=== PATIENT | female | born 1945 | race African-American/Black ===

== ENCOUNTER 2017-01-23 13:01 | Outpatient (CLI) ==
[2014-09-19 18:20] VITALS: BMI 37.3
== END 2017-01-23 13:02 | disposition home or self-care (01) ==
LOC: LAB 13:01
PROVIDERS: ATTEND General Practice
DX: L02.91 Cutaneous abscess, unspecified (principal)
CPT/HCPCS: 87070; 87186

== ENCOUNTER 2017-01-31 12:27 | Outpatient (CLI) ==
[2014-09-19 18:20] VITALS: BMI 37.3
== END 2017-01-31 12:28 | disposition home or self-care (01) ==
LOC: LAB 12:27
PROVIDERS: ATTEND General Practice
DX: L02.91 Cutaneous abscess, unspecified (principal)
CPT/HCPCS: 87070

== ENCOUNTER 2018-08-12 12:38 | Outpatient (CLI) | payer OTHER ==
[2018-07-10 12:27] VITALS: BMI 34.9
== END 2018-08-12 12:39 | disposition home or self-care (01) ==
LOC: LAB 12:38
PROVIDERS: ATTEND Nurse Practitioner Adult Health
DX: Z01.818 Encounter for other preprocedural examination (principal); I70.1 Atherosclerosis of renal artery
CPT/HCPCS: 36415; 80048; 85027

== ENCOUNTER 2018-10-13 14:09 | Outpatient (CLI) ==
[2018-07-10 12:27] VITALS: BMI 34.9
== END 2018-10-13 14:10 | disposition home or self-care (01) ==
LOC: CAR 14:09
PROVIDERS: ATTEND Psychiatry & Neurology Sleep Medicine
DX: G47.33 Obstructive sleep apnea (adult) (pediatric) (principal)
CPT/HCPCS: 95810

== ENCOUNTER 2020-12-04 10:49 | Inpatient (IN) ==
[2020-12-04] MEDS ORDERED: TYLENOL PO PRN (12:39)
[2020-12-04] MEDS ORDERED: NITROSTAT SL PRN (12:39)
[2020-12-04] MEDS ORDERED: ATROPINE SULFATE PFS IVP PRN (12:39)
[2020-12-04 12:54] LABS: BASOPHILS # (AUTO) 0.1 K/uL (0-0.2); BASOPHILS % (AUTO) 0.9 % (0.0-3.0); EOSINOPHILS # (AUTO) 0.1 K/ul (0.0-0.7); EOSINOPHILS % (AUTO) 1.5 % (0.0-7.0); HEMATOCRIT 38.8 % (37.0-47.0); HEMOGLOBIN 12.9 g/dl (12.0-16.0); IMMATURE GRANULOCYTE % (AUTO) 0.1 % (0.0-5.0); LYMPHOCYTES # (AUTO) 1.6 K/uL (0.60-3.4); LYMPHOCYTES % (AUTO) 20.2 (10.0-50.0); MEAN CORPUSCULAR HEMOGLOBIN 28.5 pg (27.0-31.0); MEAN CORPUSCULAR HGB CONC 33.2 (31.8-35.4); MEAN CORPUSCULAR VOLUME 85.7 fl (81.0-99.0); MONOCYTES # (AUTO) 0.5 K/uL (0.4-2.0); MONOCYTES % (AUTO) 6.2 (0-10); NEUTROPHILS # (AUTO) 5.5 K/ul (2.0-6.9); NEUTROPHILS % (AUTO) 71.1 % (42.2-75.2); PLATELET COUNT 227 10^3/uL (140-440); RDW COEFFICIENT OF VARIATION 12.8 % (11.6-14.8); RED BLOOD COUNT 4.53 10^6/ul (4.20-5.40); WHITE BLOOD COUNT 7.76 K/ul (4.6-10.2)
[2020-12-04 13:05] LABS: ALANINE AMINOTRANSFERASE 14.5 U/L (0-35); ALBUMIN 4.03 g/dL (3.5-5.0); ALKALINE PHOSPHATASE 114.8 U/L (53-141); ASPARTATE AMINO TRANSFERASE 18.9 U/L (14-36); BILIRUBIN,TOTAL 0.63 mg/dL (0.2-1.3); BLOOD UREA NITROGEN 11.8 mg/dL (7-17); CALCIUM 9.13 mg/dL (8.4-10.2); CHLORIDE 101.4 mmol/L (98-107); CREATINE KINASE 91.8 U/L (30-135); CREATININE 0.73 mg/dL (0.60-1.30); POTASSIUM 4.32 mmol/L (3.5-5.1); SODIUM 139.1 mmol/L (134.5-145); TOTAL PROTEIN 7.28 g/dL (6.3-8.2)
[2020-12-04 13:07] VITALS: BMI 33.7
[2020-12-04] MEDS ORDERED: LASIX IVP STA (13:15)
[2020-12-04] MEDS ORDERED: XANAX PO PRN (13:16)
[2020-12-04 13:24] LABS: TROPONIN I < 0.012 ng/ml (0.0000-0.120)
--- NOTE | 2020-12-04 13:46 | DI ---
EXAM: Chest two view, frontal and lateral views. HISTORY: Shortness of breath. COMPARISON: 07/10/2018. FINDINGS: The heart size is mildly enlarged. There is no pulmonary vascular congestion. The lungs are clear. No pleural effusion or pneumothorax is seen. No acute osseous abnormality identified. S zuleima the prior study, there has been no significant interval change. IMPRESSION: No acute cardiopulmonary process.
[2020-12-04 14:06] LABS: BILIRUBIN,URINE Negative (NEGATIVE); CLARITY,URINE Clear (CLEAR); COLOR,URINE Yellow (YELLOW); GLUCOSE, URINE (UA) Trace (NEGATIVE); KETONES,URINE Negative (NEGATIVE); LEUKOCYTE ESTERASE ,URINE Negative (NEGATIVE); NITRITE,URINE Negative (NEGATIVE); PROTEIN,URINE 2+ (NEGATIVE); URINE, BLOOD 1+ (NEGATIVE); UROBILINOGEN,URINE 0.2 (0.2)
[2020-12-04 14:14] LABS: BACTERIA,URINE 2+ (NOT PRESENT); MUCUS,URINE 1+ (NOT PRESENT)
[2020-12-04 14:50] LABS: BORDETELLA PARAPERTUSSIS (PCR) NOT DETECTED (NOT DETECT); BORDETELLA PERTUSSIS (PCR) NOT DETECTED (NOT DETECT); CHLAMYDIA PNEUMONIAE (PCR) NOT DETECTED (NOT DETECT); CORONAVIRUS 229E (PCR) NOT DETECTED (NOT DETECT); CORONAVIRUS HKU1 (PCR) NOT DETECTED (NOT DETECT); CORONAVIRUS NL63 (PCR) NOT DETECTED (NOT DETECT); CORONAVIRUS OC43 (PCR) NOT DETECTED (NOT DETECT); HUMAN METAPNEUMOVIRUS (PCR) NOT DETECTED (NOT DETECT); HUMAN RHINOVIRUS/ENTEROV (PCR) NOT DETECTED (NOT DETECT); INFLUENZA B (PCR) NOT DETECTED (NOT DETECT); MYCOPLASMA PNEUMONIAE (PCR) NOT DETECTED (NOT DETECT); PARAINFLUENZA VIRUS 1 (PCR) NOT DETECTED (NOT DETECT); PARAINFLUENZA VIRUS 2 (PCR) NOT DETECTED (NOT DETECT); PARAINFLUENZA VIRUS 3 (PCR) NOT DETECTED (NOT DETECT); PARAINFLUENZA VIRUS 4 (PCR) NOT DETECTED (NOT DETECT); RESPIRATORY SYNCYTIAL V (PCR) NOT DETECTED (NOT DETECT); SARS_COV_2 (PCR) NOT DETECTED (NOT DETECT)
[2020-12-04] MEDS: SECTRAL PO SCH ×2 (15:18→20:25)
[2020-12-04 15:38] LABS: ADENOVIRUS (PCR) NOT DETECTED (NOT DETECT)
[2020-12-04] MEDS: TIMOPTIC 0.5% OPTH EACHEYE SCH (20:23)
[2020-12-04] MEDS: BRIMONIDINE TARTRATE 0.2% OPTH SOL EACHEYE SCH (20:23)
[2020-12-04] MEDS: MINOCYCLINE 50 MG PO SCH (20:24)
[2020-12-04] MEDS: LACOSAMIDE 100 MG PO SCH (20:24)
[2020-12-04] MEDS: MINOXIDIL PO SCH (20:25)
[2020-12-04] MEDS: CALAN SR PO SCH (20:25)
[2020-12-04] MEDS: CATAPRES PO SCH (20:25)
[2020-12-04] MEDS: LIPITOR PO SCH (20:26)
[2020-12-04] MEDS: COZAAR PO SCH (20:26)
[2020-12-04] MEDS: ASPIRIN CHEWABLE PO SCH (20:27)
[2020-12-04 20:59] LABS: CREATINE KINASE 94.8 U/L (30-135)
[2020-12-04] MEDS ORDERED: GLUCOTROL PO SCH (21:00)
[2020-12-04] MEDS ORDERED: EXT REL PELLETS PO SCH (21:00)
[2020-12-04] MEDS ORDERED: VERAPAMIL 240 MG PO SCH (21:00)
[2020-12-04 21:13] LABS: TROPONIN I < 0.012 ng/ml (0.0000-0.120)
[2020-12-05 05:26] LABS: BASOPHILS # (AUTO) 0.1 K/uL (0-0.2); BASOPHILS % (AUTO) 0.8 % (0.0-3.0); EOSINOPHILS # (AUTO) 0.2 K/ul (0.0-0.7); EOSINOPHILS % (AUTO) 2.5 % (0.0-7.0); HEMATOCRIT 34.4 % (37.0-47.0); HEMOGLOBIN 11.6 g/dl (12.0-16.0); IMMATURE GRANULOCYTE % (AUTO) 0.1 % (0.0-5.0); LYMPHOCYTES # (AUTO) 2.4 K/uL (0.60-3.4); MEAN CORPUSCULAR HEMOGLOBIN 28.6 pg (27.0-31.0); MEAN CORPUSCULAR HGB CONC 33.7 (31.8-35.4); MEAN CORPUSCULAR VOLUME 84.7 fl (81.0-99.0); MONOCYTES # (AUTO) 0.8 K/uL (0.4-2.0); MONOCYTES % (AUTO) 8.7 (0-10); NEUTROPHILS # (AUTO) 5.2 K/ul (2.0-6.9); NEUTROPHILS % (AUTO) 59.9 % (42.2-75.2); PLATELET COUNT 206 10^3/uL (140-440); RDW COEFFICIENT OF VARIATION 12.7 % (11.6-14.8); RED BLOOD COUNT 4.06 10^6/ul (4.20-5.40)
[2020-12-05] MEDS: SYNTHROID PO SCH ×2 (05:38→05:39)
[2020-12-05 05:39] LABS: ALANINE AMINOTRANSFERASE 11.9 U/L (0-35); ALBUMIN 3.4 g/dL (3.5-5.0); ALKALINE PHOSPHATASE 87.5 U/L (53-141); ASPARTATE AMINO TRANSFERASE 16.9 U/L (14-36); BILIRUBIN,TOTAL 0.63 mg/dL (0.2-1.3); CALCIUM 8.74 mg/dL (8.4-10.2); CARBON DIOXIDE 31.1 mmol/L (22-30.0); CREATININE 0.78 mg/dL (0.60-1.30); GLUCOSE 214.9 mg/dL (74-106); POTASSIUM 3.63 mmol/L (3.5-5.1); SODIUM 137.8 mmol/L (134.5-145); TOTAL PROTEIN 6.19 g/dL (6.3-8.2)
[2020-12-05] MEDS ORDERED: LASIX IVP ONE (08:18)
[2020-12-05] MEDS ORDERED: K-DUR PO SCH (08:30)
[2020-12-05] MEDS: GLUCOTROL PO SCH ×2 (08:43→17:25)
[2020-12-05] MEDS: K-DUR PO SCH ×2 (08:44→17:25)
[2020-12-05] MEDS: SECTRAL PO SCH ×3 (08:44→20:35)
[2020-12-05] MEDS: CATAPRES PO SCH ×2 (08:44→20:35)
[2020-12-05] MEDS: COZAAR PO SCH ×2 (08:44→20:35)
[2020-12-05] MEDS: TIMOPTIC 0.5% OPTH EACHEYE SCH ×2 (08:45→20:36)
[2020-12-05] MEDS: BRIMONIDINE TARTRATE 0.2% OPTH SOL EACHEYE SCH ×2 (08:45→20:36)
[2020-12-05] MEDS: MAG-OX PO SCH (08:45)
[2020-12-05] MEDS: MINOXIDIL PO SCH ×2 (08:45→20:35)
[2020-12-05] MEDS: HUMULIN 70-30 SUBCUT SCH (08:46)
[2020-12-05] MEDS: LACOSAMIDE 100 MG PO SCH ×2 (08:46→20:37)
[2020-12-05] MEDS ORDERED: [UNRECOGNIZED DRUG - OTHER] SUBCUT SCH (09:00)
[2020-12-05] MEDS ORDERED: NON-FORMULARY MEDICATION (Levothyroxine [Synthroid] 125 MCG tablet) PO SCH (09:00)
--- NOTE | 2020-12-05 09:26 | PCM.PROG ---
Attending Provider: ATTENDING PROVIDER: Dr. SWAPNA SUAZO This patient is seen with Isabel Cortés, Nurse Practitioner. DATE OF SERVICE: 12/05/20 SUBJECTIVE: This 75 year old AA/BLACK F was hospitalized 12/04/20. The patient is resting comfortably in bed. She had over 1 liter out yesterday. Leg edema improved. She slept well. Denies shortness of breath this a.m. REVIEW OF SYSTEMS: CONSTITUTIONAL: No night sweats. No fatigue, malaise, lethargy. No fever or chills. HEENT: Eyes: No visual changes. No eye pain. No eye discharge. ENT: No runny nose. No epistaxis. No sinus pain. No odynophagia. No congestion. RESPIRATORY: No cough, no congestion. No hemoptysis. Denies shortness of breath this morning. CARDIOVASCULAR: No angina symptoms. No CHF symptoms. No atypical chest pain for CAD. No palpitations. No orthopnea. GASTROINTESTINAL: No abdominal pain. No nausea or vomiting. No diarrhea or constipation. No hematemesis. No hematochezia. GENITOURINARY: No urgency. No frequency. No dysuria. No hematuria. No obstructive symptoms. No discharge. No pain. No significant abnormal bleeding. MUSCULOSKELETAL: No musculoskeletal pain; no joint swelling. NEUROLOGICAL: Awake, alert, oriented to time, place and person. No headache. No neck pain. No syncope. No seizures. No dizziness. PSYCHIATRIC: Not anxious. No depression. No suicidal thoughts. No homicidal thoughts. SKIN: No rash. No lesions. No wounds. ENDOCRINE: No unexplained weight loss. No weight gain. HEMATOLOGIC/LYMPHATIC: No anemia. No purpura. No petechiae. No prolonged or excessive bleeding. No palpable lymph nodes. PHYSICAL EXAMINATION: GENERAL: The patient is awake, alert and oriented, lying/sitting in bed in no distress. VITAL SIGNS: Temperature 97.2 F, Pulse 64, Respiratory Rate 18, BP 145/66, Pulse Ox 99% HEENT: Head normocephalic, atraumatic. Eyes: Extraocular muscles are intact. Pupils are equal, round and reactive to light and accommodation. Ears: No lesions. Nose appeared normal. Throat: No exudate or erythema. NECK: Supple. No JVD, no carotid bruit. No lymphadenopathy or thyromegaly. LUNGS: Diminished breath sounds. Clear to auscultation. Percussion note normal. Chest symmetrical. HEART: S1, S2, no S3. No murmurs. No cyanosis or clubbing. No ascites. Pulses: Dorsalis pedis and posterior tibial pulses +1 to +2 both sides. ABDOMEN: Soft. Non-tender. Bowel sounds active. No CVA tenderness. No mass felt. EXTREMITIES: +1 left lower extremity edema, trace right. Full range of motion of all extremities, equal. NEUROLOGIC: No focal deficit. Cranial nerves II through XII are grossly intact. No headache. No double vision. SKIN: Not dry. Intact. Turgor-normal. LYMPHATIC: No palpable lymph nodes/no lymphedema. MUSCULOSKELETAL: Normal joints with no swelling. Muscle tone is normal. LAB REVIEW: 12/05/20 04:55 12/05/20 04:55 12/05/20 04:55: Sodium 137.8, Potassium 3.63, Chloride 102.0, Carbon Dioxide 31.1 H, Anion Gap 8.33, BUN 17.0, Creatinine 0.78, Estimated GFR (MDRD) 87.00, BUN/Creatinine Ratio 21.79, Glucose 214.9 H D, Calcium 8.74, Total Bilirubin 0.63, AST 16.9, ALT 11.9, Alkaline Phosphatase 87.5 D, Total Protein 6.19 L, Albumin 3.40 L, Globulin 2.79, Albumin/Globulin Ratio 1.21 12/05/20 04:55: WBC 8.70, RBC 4.06 L, Hgb 11.6 L, Hct 34.4 L, MCV 84.7, MCH 28.6, MCHC 33.7, RDW Coeff of Keyla 12.7, Plt Count 206, Immature Gran % (Auto) 0.1, Neut % (Auto) 59.9, Lymph % (Auto) 28.0, [place] % (Auto) 8.7, Eos % (Auto) 2.5, Baso % (Auto) 0.8, Neut # (Auto) 5.2, Lymph # (Auto) 2.4, [place] # (Auto) 0.8, Eos # (Auto) 0.2, Baso # (Auto) 0.1, Immature Gran # (Auto) 0.0 12/04/20 20:46: Total Creatine Kinase 94.8, Troponin I < 0.012 12/04/20 14:45: Adenovirus (PCR) Not detected, B. pertussis DNA (PCR) Not detected, B.parapertussis DNA PCR Not detected, C. pneumoniae DNA (PCR) Not detected, Coronavirus OC43 (PCR) Not detected, Coronavirus HKU1 (PCR) Not detected, Coronavirus 229E (PCR) Not detected, Coronavirus NL63 (PCR) Not detected, Human Metapneumovir PCR Not detected, Influenza Type A (PCR) Not detected, Influenza B (RT-PCR) Not detected, M. pneumoniae (PCR) Not detected, Parainfluenza 1 (PCR) Not detected, Parainfluenza 2 (PCR) Not detected, Parainfluenza 3 (PCR) Not detected, Parainfluenza 4 (PCR) Not detected, RSV (PCR) Not detected, Entero/Rhino (PCR) Not detected, SARS-CoV-2 (PCR) Not detected 12/04/20 13:39: Urine Color Yellow, Urine Clarity Clear, Urine pH 5.0, Ur Specific [place] 1.020, Urine Protein 2+ H, Urine Glucose (UA) Trace H, Urine Ketones Negative, Urine Blood 1+ H, Urine Nitrite Negative, Urine Bilirubin Negative, Urine Urobilinogen 0.2, Ur Leukocyte Esterase Negative, Urine Microscopic RBC 5-10, Urine Microscopic WBC 2-5, Ur Squamous Epith Cells 5-10, Urine Bacteria 2+, Hyaline Casts 2-5, Urine Mucus 1+ 12/04/20 12:50: NT-Pro-B Natriuret Pep 70.500 12/04/20 12:50: Sodium 139.1, Potassium 4.32, Chloride 101.4, Carbon Dioxide 30.0, Anion Gap 12.02, BUN 11.8, Creatinine 0.73, Estimated GFR (MDRD) 94.00, BUN/Creatinine Ratio 16.16, Glucose 303.0 H, Calcium 9.13, Total Bilirubin 0.63, AST 18.9, ALT 14.5, Alkaline Phosphatase 114.8, Total Creatine Kinase 91.8, Troponin I < 0.012, Total Protein 7.28, Albumin 4.03, Globulin 3.25, Albumin/Globulin Ratio 1.24 12/04/20 12:50: WBC 7.76, RBC 4.53, Hgb 12.9, Hct 38.8, MCV 85.7, MCH 28.5, MCHC 33.2, RDW Coeff of Keyla 12.8, Plt Count 227, Immature Gran % (Auto) 0.1, Neut % (Auto) 71.1, Lymph % (Auto) 20.2, [place] % (Auto) 6.2, Eos % (Auto) 1.5, Baso % (Auto) 0.9, Neut # (Auto) 5.5, Lymph # (Auto) 1.6, [place] # (Auto) 0.5, Eos # (Auto) 0.1, Baso # (Auto) 0.1, Immature Gran # (Auto) 0.0 ASSESSMENT: Please see below. 1. Leg edema, bilateral. 2. Shortness of breath. 3. Uncontrolled diabetes mellitus type 2. PLAN: 1. Keep legs elevated. 2. Sliding scale with Accu-checks t.i.d. 3. Lasix 40 mg IV today. 4. Potassium 20 mEq p.o. b.i.d. Plan and coordination of the patient's care discussed in the presence of Member Of Parliament and nurse. CONDITION: Stable SCRIBED BY: HEATHER JOSHI Lace Inspector scribed while in presence of service performed by Dr. Suazo/Isabel Cortés APRN on 12/05/20 ([id number])
[2020-12-05] MEDS: HUMULIN R SUBCUT PRN (11:25)
--- NOTE | 2020-12-05 12:02 | HP ---
DATE OF SERVICE: 12/04/20 HISTORY OF PRESENT ILLNESS: This 75-year-old white female who was a direct admit for Dr. Mckinney. She was undergoing an echo. She had been complaining of shortness of breath, orthopnea, leg edema. She stated this had been worsening the past four to five weeks. She was subsequently admitted for shortness of breath and leg edema. PAST MEDICAL HISTORY: Right renal cyst - the patient refuses to follow with Dr. Negrete or any other urologist. Hypertension Leg edema Peripheral arterial disease, Dr. Moura PVChue Hypothyroidism History of viral encephalitis with seizures, still sees Dr. Potter and is on seizure medication, has not had a seizure since encephalitis. Glaucoma Diabetes mellitus Type 2 uncontrolled, last A1C was 10.2 on 08/10 Metabolic syndrome Obesity Diabetic neuropathy Noncompliance with medications, diet, lifestyle PAST SURGICAL HISTORY: Benign right breast cyst with biopsy, Dr. Osborne Carpal tunnel surgery Cataract extraction Partial hysterectomy Right knee scope REVIEW OF SYSTEMS: CONSTITUTIONAL: No night sweats. No fatigue, malaise, lethargy. No fever or chills. HEENT: Eyes: No visual changes. No eye pain. No eye discharge. ENT: No runny nose. No epistaxis. No sinus pain. No sore throat. No odynophagia. No ear pain. No congestion. RESPIRATORY: No cough, no congestion. No hemoptysis. Shortness of breath. CARDIOVASCULAR: No angina symptoms. No CHF symptoms. No atypical chest pain for CAD. No palpitations. No PND. No orthopnea. GASTROINTESTINAL: No abdominal pain. No nausea or vomiting. No diarrhea or constipation. No hematemesis. No hematochezia. GENITOURINARY: No urgency. No frequency. No dysuria. No hematuria. No obstructive symptoms. No discharge. No pain. No significant abnormal bleeding. MUSCULOSKELETAL: Positive for leg edema. No musculoskeletal pain. No joint swelling. No arthritis. NEUROLOGICAL: No headache. No neck pain. No syncope. No seizures. No dizziness. PSYCHIATRIC: Not anxious. No depression. No suicidal thoughts. No homicidal thoughts. SKIN: No rash. No lesions. No wounds. ENDOCRINE: No unexplained weight loss. No weight gain. HEMATOLOGIC/LYMPHATIC: No anemia. No purpura. No petechiae. No prolonged or excessive bleeding. No palpable lymph nodes. SOCIAL HISTORY: Nonsmoker. . Retired. MEDICATIONS: Lasix 40 mg one tab p.o. daily Aspirin 81 mg one tab p.o. bedtime Verapamil 240 mg p.o. bedtime Vimpat 100 mg p.o. b.i.d. Brimonidine one drop both eyes b.i.d. Synthroid 125 mcg p.o. daily Lipitor 40 mg p.o. bedtime Xanax 0.5-1 mg p.o. bedtime p.r.n. Timolol Maleate two drops both eyes b.i.d. Minocycline 50 mg p.o. bedtime Glipizide 10 mg p.o. b.i.d. Potassium Chloride (Klor-Con M20) 20 mEq p.o. daily Minoxidil 2.5 mg p.o. b.i.d. Losartan 50 mg p.o. b.i.d. Clonidine 0.1 mg p.o. b.i.d. Acebutolol 200 mg p.o. t.i.d. Insulin NPH and Regular 45 unit subcut q.a.m. ALLERGIES: ROSIGLITAZONE MALEATE (FROM [employer]), PIOGLITAZONE HCI (FROM Risk Ident), IODINATED CONTRAST MEDIA - IV DYE, LISINOPRIL, IODINE, CLARITHROMYCIN (FROM BIAXIN), METFORMIN, SHELLFISH, DERIVED PHYSICAL EXAMINATION: VITAL SIGNS: Temperature 98.9, pulse 67, BP 158/68, respiratory rate 24, 02 sat 97% on room air. Height 5'4", weight 196 lbs. HEENT: Head normocephalic, atraumatic. Eyes: Extraocular muscles are intact. Pupils are equal, round and reactive to light and accommodation. Ears: No lesions. Nose appeared normal. Throat: No exudate or erythema. NECK: Supple. No JVD, no carotid bruit. No lymphadenopathy or thyromegaly. LUNGS: Diminished breath sounds. Clear to auscultation. Percussion note normal. Chest symmetrical. HEART: S1, S2, no S3. No murmur. No cyanosis or clubbing. No ascites. Pulses: Dorsalis pedis and posterior tibial pulses +1 to +2 bilaterally. ABDOMEN: Soft. Nontender. Bowel sounds active. No CVA tenderness. No mass felt. EXTREMITIES: +2 bilateral leg edema. Full range of motion of all extremities, equal. NEUROLOGIC: No focal deficit. Cranial nerves II through XII are grossly intact. No headache, no double vision or headache. SKIN: Not dry. Intact. Turgor - normal. LYMPHATIC: No palpable lymph nodes/no lymphedema. MUSCULOSKELETAL: Normal joints with no swelling. Muscle tone is normal. LABS: White count 7.76, hemoglobin 12.9, hematocrit 38.8. Urine 2+ protein, 1+ blood, 1+ mucus, 2+ bacteria. Chest x-ray shows no acute cardiopulmonary process. Sodium 139, potassium 4.3, BUN 11, creatinine 0.73, AST 18, ALT 14, BNP 70.5. ASSESSMENT: 1. Shortness of breath 2. Leg edema 3. Orthopnea 4. Diabetes mellitus type 2, uncontrolled 5. Obesity 6. Hypothyroidism 7. History of seizure disorder 8. Hypertension PLAN: 1. We will admit. 2. Routine telemetry orders. 3. CBC, CMP now and daily. 4. Chest x-ray. 5. UA. 6. Continue all home medications. 7. IV Lasix 40 mg times one. 8. Elevate the legs. 9. Pro-BNP. 10. Sliding scale for insulin coverage. 11. Regular diet. 12. Will follow closely. TIME SPENT: More than 70 minutes. MTDD
[2020-12-05] MEDS: ASPIRIN CHEWABLE PO SCH (20:35)
[2020-12-05] MEDS: LIPITOR PO SCH (20:35)
[2020-12-05] MEDS: CALAN SR PO SCH (20:35)
[2020-12-05] MEDS: MINOCYCLINE 50 MG PO SCH (20:37)
[2020-12-06 05:49] LABS: BASOPHILS # (AUTO) 0.1 K/uL (0-0.2); EOSINOPHILS # (AUTO) 0.2 K/ul (0.0-0.7); EOSINOPHILS % (AUTO) 2.5 % (0.0-7.0); HEMATOCRIT 34.8 % (37.0-47.0); HEMOGLOBIN 11.6 g/dl (12.0-16.0); IMMATURE GRANULOCYTE % (AUTO) 0.2 % (0.0-5.0); LYMPHOCYTES # (AUTO) 2.2 K/uL (0.60-3.4); MEAN CORPUSCULAR HEMOGLOBIN 28.6 pg (27.0-31.0); MEAN CORPUSCULAR HGB CONC 33.3 (31.8-35.4); MEAN CORPUSCULAR VOLUME 85.9 fl (81.0-99.0); MONOCYTES # (AUTO) 0.8 K/uL (0.4-2.0); NEUTROPHILS # (AUTO) 5.2 K/ul (2.0-6.9); NEUTROPHILS % (AUTO) 61.3 % (42.2-75.2); PLATELET COUNT 206 10^3/uL (140-440); RDW COEFFICIENT OF VARIATION 12.7 % (11.6-14.8); RED BLOOD COUNT 4.05 10^6/ul (4.20-5.40); WHITE BLOOD COUNT 8.42 K/ul (4.6-10.2)
[2020-12-06 06:05] LABS: ALANINE AMINOTRANSFERASE 13.1 U/L (0-35); ALBUMIN 3.42 g/dL (3.5-5.0); ALKALINE PHOSPHATASE 89.3 U/L (53-141); ASPARTATE AMINO TRANSFERASE 18.6 U/L (14-36); BILIRUBIN,TOTAL 0.43 mg/dL (0.2-1.3); CALCIUM 8.75 mg/dL (8.4-10.2); CARBON DIOXIDE 30.7 mmol/L (22-30.0); CHLORIDE 101.7 mmol/L (98-107); CREATININE 0.78 mg/dL (0.60-1.30); GLUCOSE 268.6 mg/dL (74-106); POTASSIUM 4.42 mmol/L (3.5-5.1); SODIUM 137.1 mmol/L (134.5-145); TOTAL PROTEIN 6.2 g/dL (6.3-8.2)
[2020-12-06] MEDS: LASIX TAB PO SCH (06:07)
[2020-12-06] MEDS: SYNTHROID PO SCH ×2 (06:07)
[2020-12-06] MEDS: HUMULIN R SUBCUT PRN ×4 (06:28→20:54)
[2020-12-06] MEDS: BRIMONIDINE TARTRATE 0.2% OPTH SOL EACHEYE SCH ×2 (08:04→20:47)
[2020-12-06] MEDS: TIMOPTIC 0.5% OPTH EACHEYE SCH ×2 (08:04→20:47)
[2020-12-06] MEDS: K-DUR PO SCH ×2 (08:05→16:41)
[2020-12-06] MEDS: MINOXIDIL PO SCH ×2 (08:05→20:46)
[2020-12-06] MEDS: GLUCOTROL PO SCH ×2 (08:05→16:41)
[2020-12-06] MEDS: SECTRAL PO SCH ×3 (08:05→20:45)
[2020-12-06] MEDS: MAG-OX PO SCH (08:05)
[2020-12-06] MEDS: COZAAR PO SCH ×2 (08:05→20:45)
[2020-12-06] MEDS: HUMULIN 70-30 SUBCUT SCH (08:06)
[2020-12-06] MEDS: CATAPRES PO SCH ×2 (08:06→20:45)
[2020-12-06] MEDS: LACOSAMIDE 100 MG PO SCH ×2 (08:06→20:46)
--- NOTE | 2020-12-06 10:50 | ECHO2D ---
Date of Exam: 12/04/2020 Ordering Physician: DR. SWAPNA SUAZO Room #: OP Reason for Echo: SOB, PVC, CHEST PAIN M-Mode Normal Adult Results LV Dimensions Normal Adult Results AoV Opening excursions >1.6 >1.6 LVEDD-base- 3.5-5.8 5.4 Ao root dimensions 2.0-3.7 2.9 LVESD-base- 3.1-4.6 L. Atrium dimensions 1.9-3.8 3.9 Post. Wall thickness 0.8-1.1 1.1 IV septum (thickness) 0.7-1.2 1.3 Post. Wall excursion 0.72-1.3 NORMAL Septal motion NORMAL Systolic motion R. Ventricular cavity 1.5-2.0 NORMAL LVEF 60% 59% Paradoxical septal wall motion NORMAL 2-D : 2-D M Mode Echocardiogram was performed using apical four chamber and left parasternal long and short axis views. Mitral, tricuspid and aortic valves appear to be normal. Contractility of the left ventricle seems to be normal, so is the cavity size. Left atrial cavity size and aortic root appear to be normal. There is no pericardial effusion. There is no thrombus noted in the left ventricle or left atrial cavity. M-MODE: MV: CALCIFIC MITRAL VALVE ANNULUS AV: NORMAL TV: NORMAL PV: CHAMBER SIZE: NORMAL WALL MOTION: NORMAL PERICARDIUM: NORMAL INTERPRETATION: 1. BORDERLINE LEFT VENTRICLE HYPERTROPHY 2. CALCIFIC MITRAL VALVE ANNULUS 3. NORMAL LEFT VENTRICULAR CONTRACTILITY 4. NORMAL LEFT VENTRICLE SIZE MTDD
[2020-12-06] MEDS: ASPIRIN CHEWABLE PO SCH (20:44)
[2020-12-06] MEDS: CALAN SR PO SCH (20:45)
[2020-12-06] MEDS: LIPITOR PO SCH (20:45)
[2020-12-06] MEDS: MINOCYCLINE 50 MG PO SCH (20:46)
[2020-12-07 05:24] LABS: BASOPHILS # (AUTO) 0.1 K/uL (0-0.2); BASOPHILS % (AUTO) 0.9 % (0.0-3.0); EOSINOPHILS # (AUTO) 0.2 K/ul (0.0-0.7); EOSINOPHILS % (AUTO) 2.6 % (0.0-7.0); HEMATOCRIT 33.9 % (37.0-47.0); HEMOGLOBIN 11.1 g/dl (12.0-16.0); IMMATURE GRANULOCYTE % (AUTO) 0.2 % (0.0-5.0); LYMPHOCYTES # (AUTO) 2.4 K/uL (0.60-3.4); LYMPHOCYTES % (AUTO) 28.6 (10.0-50.0); MEAN CORPUSCULAR HEMOGLOBIN 28.1 pg (27.0-31.0); MEAN CORPUSCULAR HGB CONC 32.7 (31.8-35.4); MEAN CORPUSCULAR VOLUME 85.8 fl (81.0-99.0); MONOCYTES # (AUTO) 0.8 K/uL (0.4-2.0); MONOCYTES % (AUTO) 9.4 (0-10); NEUTROPHILS # (AUTO) 4.8 K/ul (2.0-6.9); NEUTROPHILS % (AUTO) 58.3 % (42.2-75.2); PLATELET COUNT 202 10^3/uL (140-440); RDW COEFFICIENT OF VARIATION 12.6 % (11.6-14.8); RED BLOOD COUNT 3.95 10^6/ul (4.20-5.40); WHITE BLOOD COUNT 8.23 K/ul (4.6-10.2)
[2020-12-07 05:34] LABS: ALANINE AMINOTRANSFERASE 11.2 U/L (0-35); ALBUMIN 3.08 g/dL (3.5-5.0); ALKALINE PHOSPHATASE 80.7 U/L (53-141); ASPARTATE AMINO TRANSFERASE 16.3 U/L (14-36); BILIRUBIN,TOTAL 0.41 mg/dL (0.2-1.3); BLOOD UREA NITROGEN 18.4 mg/dL (7-17); CALCIUM 8.54 mg/dL (8.4-10.2); CHLORIDE 103.7 mmol/L (98-107); CREATININE 0.81 mg/dL (0.60-1.30); GLUCOSE 136.6 mg/dL (74-106); POTASSIUM 4.24 mmol/L (3.5-5.1); SODIUM 137.5 mmol/L (134.5-145); TOTAL PROTEIN 5.68 g/dL (6.3-8.2)
[2020-12-07] MEDS: SYNTHROID PO SCH ×2 (06:04→06:05)
[2020-12-07] MEDS: LASIX TAB PO SCH (06:05)
[2020-12-07] MEDS: COZAAR PO SCH (09:09)
[2020-12-07] MEDS: K-DUR PO SCH (09:09)
[2020-12-07] MEDS: GLUCOTROL PO SCH (09:09)
[2020-12-07] MEDS: SECTRAL PO SCH ×2 (09:10→14:02)
[2020-12-07] MEDS: MINOXIDIL PO SCH (09:10)
[2020-12-07] MEDS: MAG-OX PO SCH (09:10)
[2020-12-07] MEDS: LACOSAMIDE 100 MG PO SCH (09:10)
[2020-12-07] MEDS: CATAPRES PO SCH (09:10)
[2020-12-07] MEDS: BRIMONIDINE TARTRATE 0.2% OPTH SOL EACHEYE SCH (09:11)
[2020-12-07] MEDS: TIMOPTIC 0.5% OPTH EACHEYE SCH (09:11)
--- NOTE | 2020-12-07 09:11 | PCM.PROG ---
Attending Provider: ATTENDING PROVIDER: Dr. SWAPNA SUAZO This patient is seen with Isabel Cortés, Nurse Practitioner. DATE OF SERVICE: 12/07/20 SUBJECTIVE: This 75 year old AA/BLACK F was hospitalized 12/04/20. Resting comfortably in bed. Leg edema has improved. Will go home on oral Lasix. Instructed to keep the legs elevated. REVIEW OF SYSTEMS: CONSTITUTIONAL: No night sweats. No fatigue, malaise, lethargy. No fever or chills. HEENT: Eyes: No visual changes. No eye pain. No eye discharge. ENT: No runny nose. No epistaxis. No sinus pain. No odynophagia. No congestion. RESPIRATORY: No cough, no congestion. No hemoptysis. No shortness of breath. CARDIOVASCULAR: No angina symptoms. No CHF symptoms. No atypical chest pain for CAD. No palpitations. No orthopnea.. GASTROINTESTINAL: No abdominal pain. No nausea or vomiting. No diarrhea or constipation. No hematemesis. No hematochezia. GENITOURINARY: No urgency. No frequency. No dysuria. No hematuria. No obstructive symptoms. No discharge. No pain. No significant abnormal bleeding. MUSCULOSKELETAL: No musculoskeletal pain; no joint swelling. NEUROLOGICAL: Awake, alert, oriented to time, place and person. No headache. No neck pain. No syncope. No seizures. No dizziness. PSYCHIATRIC: Not anxious. No depression. No suicidal thoughts. No homicidal thoughts. SKIN: No rash. No lesions. No wounds. ENDOCRINE: No unexplained weight loss. No weight gain. HEMATOLOGIC/LYMPHATIC: No anemia. No purpura. No petechiae. No prolonged or excessive bleeding. No palpable lymph nodes. PHYSICAL EXAMINATION: GENERAL: The patient is awake, alert and oriented, lying/sitting in bed in no distress. VITAL SIGNS: Temperature 98.2 F, Pulse 68, Respiratory Rate 16, BP 110/55, Pulse Ox 98% HEENT: Head normocephalic, atraumatic. Eyes: Extraocular muscles are intact. Pupils are equal, round and reactive to light and accommodation. Ears: No lesions. Nose appeared normal. Throat: No exudate or erythema. NECK: Supple. No JVD, no carotid bruit. No lymphadenopathy or thyromegaly. LUNGS: Diminished breath sounds. Clear to auscultation. Percussion note normal. Chest symmetrical. HEART: S1, S2, no S3. No murmurs. No cyanosis or clubbing. No ascites. Pulses: Dorsalis pedis and posterior tibial pulses +1 to +2 both sides. ABDOMEN: Soft. Non-tender. Bowel sounds active. No CVA tenderness. No mass felt. EXTREMITIES: No edema. Full range of motion of all extremities, equal. NEUROLOGIC: No focal deficit. Cranial nerves II through XII are grossly intact. No headache. No double vision. SKIN: Not dry. Intact. Turgor-normal. LYMPHATIC: No palpable lymph nodes/no lymphedema. MUSCULOSKELETAL: Normal joints with no swelling. Muscle tone is normal. LAB REVIEW: 12/07/20 04:39 12/07/20 04:39 12/07/20 04:39: Sodium 137.5, Potassium 4.24, Chloride 103.7, Carbon Dioxide 30. 0, Anion Gap 8.04, BUN 18.4 H, Creatinine 0.81, Estimated GFR (MDRD) 83.00, BUN/Creatinine Ratio 22.71, Glucose 136.6 H D, Calcium 8.54, Total Bilirubin 0.41, AST 16.3, ALT 11.2, Alkaline Phosphatase 80.7, Total Protein 5.68 L, Albumin 3.08 L, Globulin 2.60, Albumin/Globulin Ratio 1.18 12/07/20 04:39: WBC 8.23, RBC 3.95 L, Hgb 11.1 L, Hct 33.9 L, MCV 85.8, MCH 28.1, MCHC 32.7, RDW Coeff of Kyela 12.6, Plt Count 202, Immature Gran % (Auto) 0.2, Neut % (Auto) 58.3, Lymph % (Auto) 28.6, [place] % (Auto) 9.4, Eos % (Auto) 2.6, Baso % (Auto) 0.9, Neut # (Auto) 4.8, Lymph # (Auto) 2.4, [place] # (Auto) 0.8, Eos # (Auto) 0.2, Baso # (Auto) 0.1, Immature Gran # (Auto) 0.0 ASSESSMENT: Please see below. 1. Leg edema resolved. 2. Diabetes mellitus Type 2, uncontrolled. 3. Obesity. 4. Shortness of breath with exertion. 5. Noncompliance. PLAN: 1. Discharge home. 2. Elevate legs. 3. Continue Lasix. 4. The patient has Dobutamine Stress Echo Sestamibi scheduled for next week. Plan and coordination of the patient's care discussed in the presence of Home Health Care Social Worker and nurse. CONDITION: Stable SCRIBED BY: HEATHER JOSHI Resident Services Supervisor scribed while in presence of service performed by Dr. Suazo/Isabel Cortés APRN on 12/07/20 ([id number])
[2020-12-07] MEDS: HUMULIN 70-30 SUBCUT SCH (09:13)
[2020-12-07] MEDS: HUMULIN R SUBCUT PRN (11:12)
--- NOTE | 2020-12-07 14:06 | CM.DICTOOL ---
ADMISSION: 12/04/20 12:05 DISCHARGE: DECEMBER 07, 2020 DATE OF SERVICE: 12/07/20 FINAL DIAGNOSIS BILATERAL LEG EDEMA, RESOLVED SHORTNESS OF AIR DIABETES TYPE 2, UNCONTROLLED (A1C 10.2 2020) HYPERTENSION DYSLIPIDEMIA HYPOTHYROIDISM VIRAL ENCEPHALITIS WITH SEIZURE DISORDER (DR. NELSON) METABOLIC SYNDROME OBESITY RIGHT RENAL CYST NON-COMPLIANCE WITH DIET, LIFESTYLE, MEDICATIONS BILATERAL CATARACT EXTRACTION BILATERAL CARPAL TUNNEL SURGERY BENIGN RIGHT BREAST CYST WITH BIOPSY, DR. FAN PARTIAL HYSTERECTOMY RIGHT KNEE SCOPE ECHOCARDIOGRAM, COMPLETED 12/04/2020 LAST VITALS Temp Pulse Resp BP Pulse Ox 98.2 F 68 19 110/55 L 98 12/07/20 05:43 12/07/20 05:43 12/07/20 08:00 12/07/20 05:43 12/07/20 05:43 TAKE THESE MEDICATIONS AT HOME Acebutolol HCl (Acebutolol Hcl 200 Mg Capsule) 200 mg PO TID [facility] Last Admin: 12/07/20 09:10 Dose: 200 mg Documented by: Alprazolam (Alprazolam 0.5 Mg Tablet) 0.5 - 1 mg PO BEDTIME PRN PRN Reason: Restlessness Last Admin: 12/06/20 20:45 Dose: 0.5 mg Documented by: Aspirin (Aspirin 81 Mg Tab.Chew) 81 mg PO BEDTIME [facility] Last Admin: 12/06/20 20:44 Dose: 81 mg Documented by: Atorvastatin Calcium (Atorvastatin Calcium 20 Mg Tablet) 40 mg PO BEDTIME [facility] Last Admin: 12/06/20 20:45 Dose: 40 mg Documented by: Brimonidine Tartrate (Brimonidine Tartrate 0.2% 5 Ml Btl) 1 drop EACHEYE BID [facility] Last Admin: 12/07/20 09:11 Dose: 1 drop Documented by: Clonidine (Clonidine Hcl 0.1 Mg Tablet) 0.1 mg PO BID [facility] Last Admin: 12/07/20 09:10 Dose: 0.1 mg Documented by: Furosemide (Furosemide 40 Mg Tablet) 40 mg PO QDAC [facility] Last Admin: 12/07/20 06:05 Dose: 40 mg Documented by: Glipizide (Glipizide 5 Mg Tablet) 10 mg PO BIDWM [facility] Last Admin: 12/07/20 09:09 Dose: 10 mg Documented by: Insulin Human Isoph/Insulin Regular (Insulin Nph Hum/Reg Insulin Hm 100 Unit/Ml (3 Ml) Vial) 45 unit SUBCUT QAM [facility] Last Admin: 12/07/20 09:13 Dose: 45 unit Documented by: Levothyroxine Sodium (Levothyroxine Sodium 125 Mcg Tablet) 100 mcg PO QDAC [facility] Last Admin: 12/07/20 06:05 Dose: 125 mcg Documented by: Losartan Potassium (Losartan Potassium 25 Mg Tablet) 50 mg PO BID [facility] Last Admin: 12/07/20 09:09 Dose: 50 mg Documented by: Magnesium Oxide (Magnesium Oxide 400 Mg Tablet) 400 mg PO DAILY [facility] Last Admin: 12/07/20 09:10 Dose: 400 mg Documented by: Minoxidil (Minoxidil 2.5 Mg Tablet) 2.5 mg PO BID [facility] Last Admin: 12/07/20 09:10 Dose: 2.5 mg Documented by: Non-Formulary Medication (Lacosamide [Vimpat]) 100 mg PO BID [facility] Last Admin: 12/07/20 09:10 Dose: 100 mg Documented by: Non-Formulary Medication (Minocycline) 50 mg PO BEDTIME [facility] Last Admin: 12/06/20 20:46 Dose: 50 mg Documented by: Potassium Chloride (Potassium Chloride 20 Meq Tab) 20 meq PO DAILY WM [facility] Last Admin: 12/07/20 09:09 Dose: 20 meq Documented by: Timolol Maleate (Timolol Maleate 5 Ml Opth Radha) 2 drop EACHEYE BID [facility] Last Admin: 12/07/20 09:11 Dose: 2 drop Documented by: Verapamil HCl (Verapamil Hcl 120 Mg Tablet.Er) 240 mg PO BEDTIME [facility] Last Admin: 12/06/20 20:45 Dose: 240 mg Documented by: ALLERGIES clarithromycin [From Biaxin] Adverse Reaction (Verified 12/07/20 07:24) Iodinated Contrast Media [Iodinated Contrast Media - IV Dye] Adverse Reaction (Verified 12/07/20 07:24) iodine Adverse Reaction (Verified 12/07/20 07:24) lisinopril Adverse Reaction (Verified 12/07/20 07:24) metformin Adverse Reaction (Verified 12/07/20 07:24) pioglitazone HCl [From Actos] Adverse Reaction (Verified 12/07/20 07:24) rosiglitazone maleate [From Avandia] Adverse Reaction (Verified 12/07/20 07:24) shellfish derived Adverse Reaction (Verified 12/07/20 07:24) DISCONTINUED MEDICATIONS NONE NEW PRESCRIPTIONS: NONE SMOKING: NOT APPLICABLE DISEASE SPECIFIC EDUCATION: ELEVATE LEGS ABOVE THE LEVEL OF THE HIPS APPOINTMENT FOR OUTPATIENT DOBUTAMINE STRESS ECHO SESTAMIBI APPOINTMENT FOR HOSPITAL FOLLOW-UP LAB REVIEW: 12/07/20 04:39 12/07/20 04:39 12/07/20 04:39: Sodium 137.5, Potassium 4.24, Chloride 103.7, Carbon Dioxide 30.0, Anion Gap 8.04, BUN 18.4 H, Creatinine 0.81, Estimated GFR (MDRD) 83.00, BUN/Creatinine Ratio 22.71, Glucose 136.6 H D, Calcium 8.54, Total Bilirubin 0.41, AST 16.3, ALT 11.2, Alkaline Phosphatase 80.7, Total Protein 5.68 L, Albumin 3.08 L, Globulin 2.60, Albumin/Globulin Ratio 1.18 12/07/20 04:39: WBC 8.23, RBC 3.95 L, Hgb 11.1 L, Hct 33.9 L, MCV 85.8, MCH 28.1, MCHC 32.7, RDW Coeff of Keyla 12.6, Plt Count 202, Immature Gran % (Auto) 0.2, Neut % (Auto) 58.3, Lymph % (Auto) 28.6, [place] % (Auto) 9.4, Eos % (Auto) 2.6, Baso % (Auto) 0.9, Neut # (Auto) 4.8, Lymph # (Auto) 2.4, [place] # (Auto) 0.8, Eos # (Auto) 0.2, Baso # (Auto) 0.1, Immature Gran # (Auto) 0.0 PLAN: DISCHARGE HOME DIET: CONSISTENT CARBOHYDRATE ACTIVITY: GRADUALLY RESUME TOLERATED ELEVATE LEGS ABOVE THE LEVEL OF THE HIPS WHEN SLEEPING AND WHEN SITTING IN THE CHAIR AMBULATE IN THE HOME SEVERAL TIMES DAILY; USE CANE OR ROLLATOR FOR ADDED STABI LITY CHECK YOUR BLOOD SUGAR AT LEAST 2 TIMES DAILY YOU ARE SCHEDULED FOR AN OUTPATIENT DOBUTAMINE STRESS ECHO SESTAMIBI TEST ON DECEMBER 12 AT 9:00 AM YOU ARE SCHEDULED FOR AN APPOINTMENT WITH DR. SUAZO/SHADI DIAZ APRN/MARSHA GAN APRN ON November AT 1:45 PM CODE STATUS: FULL CODE MS. HUMPHRIES IS ALERT AND ORIENTED X 4. SHE IS AGREEABLE TO PLANS FOR DISCHARGE HOME. SHE IS AWARE AND AGREEABLE FOR OUTPATIENT TESTING ON DECEMBER 12. MS. HUMPHRIES LIVES AT HOME WITH HER DAUGHTER AND TWO GRANDDAUGHTERS. MS. HUMPHRIES IS INDEPENDENT WITH ADL'S. SHE TRANSFERS PER SELF AND IS AMBULATORY IN THE ROOM WITH USE A CANE AND/OR ROLLATOR (WHEN HIPS/LEGS FEEL STIFF). MS. HUMPHRIES IS CONTINENT OF BOWEL AND BLADDER, BUT WEARS DEPENDS UNDERGARMENTS DUE TO URINARY DRIBBLING. MS. HUMPHRIES HAS A GOOD APPETITE AND HAS CONSUMED 50-100% OF HER MEALS. HYDRATION STATUS IS GOOD. SKIN IS INTACT. EDEMA TO THE LOWER E XTREMITIES HAS RESOLVED. MS HUMPHRIES HAS A CANE, ROLLATOR AND GLUCOMETER FOR HER USE AT HOME. SHE REPORTS SHE STILL DRIVES. MD SHADI VARELA, [place]
[2020-12-07 14:13] VITALS: BP 117/66; TEMP 98.8
--- NOTE | 2020-12-08 13:28 | PN ---
DATE OF SERVICE: 12/06/2020 SUBJECTIVE: 75 year old white female hospitalized with shortness of breath and questionable orthopnea and leg edema up to the thighs. The patient's edema practically has resolved. Breathing a lot better. Appetite seems to be improving. REVIEW OF SYSTEMS: CONSTITUTIONAL: No night sweats. No fatigue, malaise, lethargy. No fever or chills. HEENT: Eyes: No visual changes. No eye pain. No eye discharge. ENT: No runny nose. No epistaxis. No sinus pain. No sore throat. No odynophagia. No congestion. RESPIRATORY: No cough, no congestion. No hemoptysis. Shortness of breath not like before. Gets short of breath on exertion. CARDIOVASCULAR: No angina symptoms. No CHF symptoms. No atypical chest pain for CAD. No palpitations. No PND. No orthopnea. GASTROINTESTINAL: No abdominal pain. No nausea or vomiting. No diarrhea or constipation. No hematemesis. No hematochezia. GENITOURINARY: No urgency. No frequency. No dysuria. No hematuria. No obstructive symptoms. No discharge. No pain. No significant abnormal bleeding. MUSCULOSKELETAL: No musculoskeletal pain; no joint swelling. NEUROLOGICAL: No headache. No neck pain. No syncope. No seizures. No dizziness. PSYCHIATRIC: Not anxious. No depression. No suicidal thoughts. No homicidal thoughts. SKIN: No rash. No lesions. No wounds. ENDOCRINE: No unexplained weight loss. No weight gain. HEMATOLOGIC/LYMPHATIC: No anemia. No purpura. No petechiae. No prolonged or excessive bleeding. No palpable lymph nodes. PHYSICAL EXAMINATION: VITAL SIGNS: Temperature 97.8, pulse 60, respiratory rate 18, blood pressure 150/77 and pulse ox 99% on room air. HEENT: Head normocephalic, atraumatic. Eyes: Extraocular muscles are intact. Pupils are equal, round and reactive to light and accommodation. Ears: No lesions. Nose appeared normal. Throat: No exudate or erythema. NECK: Supple. No JVD, no carotid bruit. No lymphadenopathy or thyromegaly. LUNGS: Clear to auscultation. Percussion note normal. Chest symmetrical. HEART: S1, S2, no S3. No murmurs. No cyanosis or clubbing. No ascites. Pulses: Dorsalis pedis and posterior tibial pulses +1 to +2 bilaterally. ABDOMEN: Soft. Nontender. Bowel sounds active. No CVA tenderness. No mass felt. EXTREMITIES: No edema. Full range of motion of all extremities, equal. NEUROLOGIC: No focal deficit. Cranial nerves II through XII are grossly intact. No headache. No double vision. SKIN: Not dry. Intact. Turgor - normal. LYMPHATIC: No palpable lymph nodes/no lymphedema. MUSCULOSKELETAL: Normal joints with no swelling. Muscle tone is normal. LABS: hgb 11.6, hct 34m, WBC 8,400 normal differential, creatinine 0.7, BUN 20, potassium 4.4 ASSESSMENT: 1. Shortness of breath seems to be somewhat better 2. Leg edema seems to have resolved 3. Diabetes Mellitus 4. Hypotension 5. Dyslipidemia PLAN: 1. DASH diet discussed 2. Advised to cut down on salt 3. Strongly advised to lose weight 4. Continue Verapamil, Minoxidil and Losartan 5. Atorvastatin needs to be continued with Goal of Non-HDL 100 6. A1c goal 6-7 7. Advised to adjust the insulin dose according to what she gets in the morning. Acceptable range would be 90-110 to 120. Nighttime before going to be should be 140. 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 The patient will undergo Stress echo sestamibi on Friday. TIME SPENT: More than 30 minutes. Plan and coordination of the patient's care discussed in the presence of nurse. MARCO ANTONIO
--- NOTE | 2020-12-11 14:47 | PN ---
DATE OF SERVICE: 12/05/2020 SUBJECTIVE: The patient was seen and examined with Nurse Practitioner. The patient's condition has improved. She is less short of breath. Leg edema is resolving. Cardiovascular status is stable. BNP was negative. Echo showed normal LV contractility with LVH. We will have the patient under go Dobutamine stress echo sestamibi Friday. The patient has BMI of 34, strongly advised to lose weight. Diabetic diet discussed with the patient. A1c goal 6-7 discussed. All the complications of diabetes discussed. TIME SPENT: More than 30 minutes. Plan and coordination of the patient's care discussed in the presence of nurse. MARCO ANTONIO
--- NOTE | 2020-12-12 10:34 | PN ---
DATE OF SERVICE: 12/07/2020 SUBJECTIVE: The patient was seen and examined with the Nurse Practitioner. The patient's condition has improved. She is feeling better. She is less short of breath. Edema is practically from the leg has resolved. No evidence of CHF or coronary insufficiency at present time. The patient was advised to check her blood sugar at least twice a day, 5 days a week. Keep fasting blood sugar between 90-120 to 130 before going to sleep keep it 130 to 150. A1c advised between 6-7. Continue Statin. The patient's BMI is 34 and needs to be 23 plus minus two. Weight loss diet discussed. CONDITION: Stable. TIME SPENT: More than 30 minutes. Plan and coordination of the patient's care discussed in the presence of nurse. MARCO ANTONIO
--- NOTE | 2020-12-12 10:35 | PN ---
12/04/2020: Level 5 12/05/2020: Intermediate 12/06/2020: Intermediate 12/07/2020: D as in discharge MTDD
--- NOTE | 2020-12-12 11:07 | DS ---
DATE OF SERVICE: 12/07/20 FINAL DIAGNOSIS: 1. BILATERAL LEG EDEMA, RESOLVED 2. SHORTNESS OF AIR 3. DIABETES TYPE 2, UNCONTROLLED (A1C 10.2 2020) 4. HYPERTENSION 5. DYSLIPIDEMIA 6. HYPOTHYROIDISM 7. VIRAL ENCEPHALITIS WITH SEIZURE DISORDER (DR. NELSON) 8. METABOLIC SYNDROME 9. OBESITY 10. RIGHT RENAL CYST 11. NON-COMPLIANCE WITH DIET, LIFESTYLE, MEDICATIONS 12. BILATERAL CATARACT EXTRACTION 13. BILATERAL CARPAL TUNNEL SURGERY 14. BENIGN RIGHT BREAST CYST WITH BIOPSY, DR. FAN 15. PARTIAL HYSTERECTOMY 16. RIGHT KNEE SCOPE 17. ECHOCARDIOGRAM, COMPLETED 12/04/2020 LAST VITALS Temp Pulse Resp BP Pulse Ox 98.2 F 68 19 110/55 L 98 12/07/20 05:43 12/07/20 05:43 12/07/20 08:00 12/07/20 05:43 12/07/20 05:43 DISCHARGE INSTRUCTIONS: 1. DISCHARGE HOME 2. CHECK YOUR BLOOD SUGAR AT LEAST 2 TIMES DAILY 3. YOU ARE SCHEDULED FOR AN OUTPATIENT DOBUTAMINE STRESS ECHO SESTAMIBI TEST ON DECEMBER 12 AT 9:00 AM. 4. YOU ARE SCHEDULED FOR AN APPOINTMENT WITH DR. SUAZO/SHADI DIAZ APRN/MARSHA GAN APRN ON November AT 1:45 PM. MEDICATIONS AT DISCHARGE: Acebutolol HCl (Acebutolol Hcl 200 Mg Capsule) 200 mg PO TID [facility] Last Admin: 12/07/20 09:10 Dose: 200 mg Documented by: Alprazolam (Alprazolam 0.5 Mg Tablet) 0.5 - 1 mg PO BEDTIME PRN PRN Reason: Restlessness Last Admin: 12/06/20 20:45 Dose: 0.5 mg Documented by: Aspirin (Aspirin 81 Mg Tab.Chew) 81 mg PO BEDTIME [facility] Last Admin: 12/06/20 20:44 Dose: 81 mg Documented by: Atorvastatin Calcium (Atorvastatin Calcium 20 Mg Tablet) 40 mg PO BEDTIME [facility] Last Admin: 12/06/20 20:45 Dose: 40 mg Documented by: Brimonidine Tartrate (Brimonidine Tartrate 0.2% 5 Ml Btl) 1 drop EACHEYE BID [facility] Last Admin: 12/07/20 09:11 Dose: 1 drop Documented by: Clonidine (Clonidine Hcl 0.1 Mg Tablet) 0.1 mg PO BID [facility] Last Admin: 12/07/20 09:10 Dose: 0.1 mg Documented by: Furosemide (Furosemide 40 Mg Tablet) 40 mg PO QDAC [facility] Last Admin: 12/07/20 06:05 Dose: 40 mg Documented by: Glipizide (Glipizide 5 Mg Tablet) 10 mg PO BIDWM [facility] Last Admin: 12/07/20 09:09 Dose: 10 mg Documented by: Insulin Human Isoph/Insulin Regular (Insulin Nph Hum/Reg Insulin Hm 100 Unit/Ml (3 Ml) Vial) 45 unit SUBCUT QAM [facility] Last Admin: 12/07/20 09:13 Dose: 45 unit Documented by: Levothyroxine Sodium (Levothyroxine Sodium 125 Mcg Tablet) 100 mcg PO QDAC [facility] Last Admin: 12/07/20 06:05 Dose: 125 mcg Documented by: Losartan Potassium (Losartan Potassium 25 Mg Tablet) 50 mg PO BID [facility] Last Admin: 12/07/20 09:09 Dose: 50 mg Documented by: Magnesium Oxide (Magnesium Oxide 400 Mg Tablet) 400 mg PO DAILY [facility] Last Admin: 12/07/20 09:10 Dose: 400 mg Documented by: Minoxidil (Minoxidil 2.5 Mg Tablet) 2.5 mg PO BID [facility] Last Admin: 12/07/20 09:10 Dose: 2.5 mg Documented by: Non-Formulary Medication (Lacosamide ) 100 mg PO BID [facility] Last Admin: 12/07/20 09:10 Dose: 100 mg Documented by: Non-Formulary Medication (Minocycline) 50 mg PO BEDTIME [facility] Last Admin: 12/06/20 20:46 Dose: 50 mg Documented by: Potassium Chloride (Potassium Chloride 20 Meq Tab) 20 meq PO DAILY WM [facility] Last Admin: 12/07/20 09:09 Dose: 20 meq Documented by: Timolol Maleate (Timolol Maleate 5 Ml Opth Radha) 2 drop EACHEYE BID [facility] Last Admin: 12/07/20 09:11 Dose: 2 drop Documented by: Verapamil HCl (Verapamil Hcl 120 Mg Tablet.Er) 240 mg PO BEDTIME [facility] Last Admin: 12/06/20 20:45 Dose: 240 mg Documented by: NEW PRESCRIPTIONS: NONE DISCONTINUED MEDICATIONS: NONE DIET INSTRUCTIONS: CONSISTENT CARBOHYDRATE ACTIVITY: GRADUALLY RESUME TOLERATED ELEVATE LEGS ABOVE THE LEVEL OF THE HIPS WHEN SLEEPING AND WHEN SITTING IN THE CHAIR AMBULATE IN THE HOME SEVERAL TIMES DAILY; USE CANE OR ROLLATOR FOR ADDED STABILITY SMOKING: NOT APPLICABLE DISEASE SPECIFIC EDUCATION: ELEVATE LEGS ABOVE THE LEVEL OF THE HIPS APPOINTMENT FOR OUTPATIENT DOBUTAMINE STRESS ECHO SESTAMIBI APPOINTMENT FOR HOSPITAL FOLLOW-UP HOSPITAL COURSE: 75-year-old Black female was seen in the office as she came with bilateral leg edema up to the thigh, shortness of breath on minimal exertion with fluid overload. She was hospitalized. BNP was within normal range, showed normal LV contractility with LVH. She was scheduled for stress Sestamibi which was postponed. She was put in the hospital and was given diuretic therapy along with low salt diet. Legs were elevated. She practically lost all of her fluid from lower extremities. She felt a lot better. Blood pressure has been more or less well controlled. She was advised to cut down on salt. Also advised to lose weight. She has a BMI of 34, high is 23+-2. Also her A1C is always more than 8. She was advised to get between 6 to 7 then check her blood sugar, et al. 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 Complication of diabetes mellitus was discussed with her in detail. The patient was discharged in stable condition. She was feeling a lot better. She was up and about, less short of breath, which is well-controlled. Oxygen saturation is more than 98% on room air. Stress Sestamibi as an outpatient this coming Friday. Condition at time of discharge stable. TIME SPENT: More than 60 minutes. MARCO ANTONIO
--- NOTE | 2020-12-12 11:25 | PN ---
BILLING 12/04/20 ADMISSION DAY LEVEL 5 12/05/20 INTERMEDIATE 12/06/20 INTERMEDIATE 12/07/20 FINAL DAY - D IN DISCHARGE MTDD
== END 2020-12-07 14:39 | disposition home or self-care (01) | DRG 948 ==
LOC: CAR 10:49 → MEDSURG A 12:05
PROVIDERS: ADMIT Internal Medicine; ATTEND Internal Medicine

== ENCOUNTER 2021-12-04 11:23 | Inpatient (IN) ==
[2021-12-04 13:42] VITALS: BMI 34.0
[2021-12-04] MEDS ORDERED: ATROPINE SULFATE PFS IVP PRN (13:43)
[2021-12-04] MEDS ORDERED: NITROSTAT SL PRN (13:43)
[2021-12-04] MEDS ORDERED: TYLENOL PO PRN (13:43)
[2021-12-04 14:18] LABS: BASOPHILS % (AUTO) 0.3 % (0.0-3.0); EOSINOPHILS % (AUTO) 0.3 % (0.0-7.0); HEMATOCRIT 33.8 % (37.0-47.0); HEMOGLOBIN 10.8 g/dl (12.0-16.0); IMMATURE GRANULOCYTE % (AUTO) 0.3 % (0.0-5.0); LYMPHOCYTES # (AUTO) 1.5 K/uL (0.60-3.4); LYMPHOCYTES % (AUTO) 13.2 (10.0-50.0); MEAN CORPUSCULAR HEMOGLOBIN 27.6 pg (27.0-31.0); MEAN CORPUSCULAR VOLUME 86.2 fl (81.0-99.0); MONOCYTES # (AUTO) 0.9 K/uL (0.4-2.0); MONOCYTES % (AUTO) 7.3 (0-10); NEUTROPHILS # (AUTO) 9.1 K/ul (2.0-6.9); NEUTROPHILS % (AUTO) 78.6 % (42.2-75.2); PLATELET COUNT 218 10^3/uL (140-440); RDW COEFFICIENT OF VARIATION 14.2 % (11.6-14.8); RED BLOOD COUNT 3.92 10^6/ul (4.20-5.40); WHITE BLOOD COUNT 11.61 K/ul (4.6-10.2)
[2021-12-04] MEDS ORDERED: XANAX PO PRN (14:20)
[2021-12-04] MEDS ORDERED: NON-FORMULARY MEDICATION (Aspirin-Acetaminophen-Caffeine [Excedrin Migraine] 250-250-65 mg PO PRN (14:26)
[2021-12-04] MEDS ORDERED: NORCO 10-325 PO PRN (14:26)
[2021-12-04] MEDS ORDERED: CAMPHOR MENTHOL TP PRN (14:26)
[2021-12-04 14:27] LABS: BILIRUBIN,URINE Negative (NEGATIVE); CLARITY,URINE Clear (CLEAR); COLOR,URINE Yellow (YELLOW); GLUCOSE, URINE (UA) Negative (NEGATIVE); KETONES,URINE Negative (NEGATIVE); LEUKOCYTE ESTERASE ,URINE Negative (NEGATIVE); NITRITE,URINE Negative (NEGATIVE); PROTEIN,URINE Negative (NEGATIVE); URINE, BLOOD Negative (NEGATIVE); UROBILINOGEN,URINE 0.2 (0.2)
[2021-12-04 14:30] LABS: ALANINE AMINOTRANSFERASE 37.8 U/L (0-35); ALBUMIN 3.69 g/dL (3.5-5.0); ALKALINE PHOSPHATASE 89.6 U/L (53-141); ASPARTATE AMINO TRANSFERASE 29.6 U/L (14-36); BILIRUBIN,TOTAL 0.75 mg/dL (0.2-1.3); BLOOD UREA NITROGEN 12.5 mg/dL (7-17); CALCIUM 8.83 mg/dL (8.4-10.2); CHLORIDE 100.7 mmol/L (98-107); CREATINE KINASE 58.6 U/L (30-135); CREATININE 0.94 mg/dL (0.60-1.30); GLUCOSE 223.9 mg/dL (74-106); POTASSIUM 2.95 mmol/L (3.5-5.1); SODIUM 137.3 mmol/L (134.5-145); TOTAL PROTEIN 6.4 g/dL (6.3-8.2)
[2021-12-04 14:42] LABS: TROPONIN I 0.026 ng/ml (0.0000-0.120)
[2021-12-04 15:01] LABS: THYROID STIMULATING HORMONE 0.874 uIU/L (0.465-4.68)
--- NOTE | 2021-12-04 15:01 | DI ---
EXAM: CHEST FRONTAL AND LATERAL VIEWS HISTORY: Hypertensive emergency COMPARISON: 12/04/2020 FINDINGS: Cardiomegaly is again noted. No acute infiltrates are seen. No vascular congestion. The re is no consolidation, visible pleural fluid or pneumothorax. Bones reveal no acute abnormality. IMPRESSION: Cardiomegaly. No acute cardiopulmonary process.
[2021-12-04] MEDS: LOPRESSOR PO SCH ×2 (15:10→20:24)
[2021-12-04] MEDS: LASIX IVP SCH (15:11)
[2021-12-04] MEDS: K-DUR PO SCH ×2 (17:58→20:24)
[2021-12-04] MEDS: MINOXIDIL PO SCH (20:24)
[2021-12-04] MEDS: BRIMONIDINE TARTRATE 0.2% OPTH SOL EACHEYE SCH (20:24)
[2021-12-04] MEDS: CATAPRES PO SCH (20:24)
[2021-12-04] MEDS: LACOSAMIDE 100 MG PO SCH ×2 (20:36→21:44)
[2021-12-04] MEDS ORDERED: TIMOPTIC 0.5% OPTH EACHEYE SCH (21:00)
[2021-12-04 22:03] LABS: CREATINE KINASE 56.5 U/L (30-135)
[2021-12-04 22:16] LABS: TROPONIN I 0.037 ng/ml (0.0000-0.120)
[2021-12-05 05:10] LABS: HEMATOCRIT 30.2 % (37.0-47.0); HEMOGLOBIN 9.7 g/dl (12.0-16.0); MEAN CORPUSCULAR HEMOGLOBIN 27.8 pg (27.0-31.0); MEAN CORPUSCULAR HGB CONC 32.1 (31.8-35.4); MEAN CORPUSCULAR VOLUME 86.5 fl (81.0-99.0); RDW COEFFICIENT OF VARIATION 14.1 % (11.6-14.8); RED BLOOD COUNT 3.49 10^6/ul (4.20-5.40); WHITE BLOOD COUNT 9.82 K/ul (4.6-10.2)
[2021-12-05 05:22] LABS: ALANINE AMINOTRANSFERASE 33.6 U/L (0-35); ALBUMIN 3.31 g/dL (3.5-5.0); ALKALINE PHOSPHATASE 79.3 U/L (53-141); ASPARTATE AMINO TRANSFERASE 23.8 U/L (14-36); BILIRUBIN,TOTAL 0.53 mg/dL (0.2-1.3); BLOOD UREA NITROGEN 17.4 mg/dL (7-17); CALCIUM 8.46 mg/dL (8.4-10.2); CARBON DIOXIDE 31.6 mmol/L (22-30.0); CHLORIDE 103.4 mmol/L (98-107); CREATININE 0.98 mg/dL (0.60-1.30); GLUCOSE 252.9 mg/dL (74-106); POTASSIUM 3.62 mmol/L (3.5-5.1); SODIUM 139.4 mmol/L (134.5-145); TOTAL PROTEIN 5.93 g/dL (6.3-8.2)
[2021-12-05] MEDS: LASIX IVP SCH (05:46)
[2021-12-05] MEDS: SYNTHROID PO SCH ×2 (05:49)
[2021-12-05] MEDS: HUMULIN 70-30 SUBCUT SCH ×2 (05:49→06:49)
[2021-12-05] MEDS ORDERED: LASIX TAB PO SCH (06:30)
[2021-12-05] MEDS: BRIMONIDINE TARTRATE 0.2% OPTH SOL EACHEYE SCH ×2 (08:35→21:07)
[2021-12-05] MEDS: MAG-OX PO SCH (08:35)
[2021-12-05] MEDS: TIMOPTIC 0.5% OPTH EACHEYE SCH ×2 (08:35→21:07)
[2021-12-05] MEDS: MINOXIDIL PO SCH ×2 (08:35→21:07)
[2021-12-05] MEDS: ASPIRIN CHEWABLE PO SCH (08:36)
[2021-12-05] MEDS: LOPRESSOR PO SCH ×2 (08:36→21:06)
[2021-12-05] MEDS: CATAPRES PO SCH ×2 (08:38→21:06)
[2021-12-05] MEDS: LACOSAMIDE 100 MG PO SCH ×2 (08:41→21:06)
[2021-12-05] MEDS ORDERED: NON-FORMULARY MEDICATION (Levothyroxine [Synthroid] 125 MCG tablet) PO SCH (09:00)
[2021-12-05] MEDS ORDERED: NORVASC PO SCH (09:00)
[2021-12-05] MEDS ORDERED: HUMULIN 70-30 SUBCUT SCH (09:00)
[2021-12-05] MEDS ORDERED: K-DUR PO SCH (09:00)
[2021-12-05] MEDS ORDERED: COZAAR PO SCH (09:00)
[2021-12-06] MEDS: SYNTHROID PO SCH ×2 (05:45)
[2021-12-06] MEDS: LASIX IVP SCH (05:46)
[2021-12-06 06:02] LABS: HEMATOCRIT 30.7 % (37.0-47.0); HEMOGLOBIN 9.8 g/dl (12.0-16.0); MEAN CORPUSCULAR HEMOGLOBIN 27.8 pg (27.0-31.0); MEAN CORPUSCULAR HGB CONC 31.9 (31.8-35.4); MEAN CORPUSCULAR VOLUME 87.2 fl (81.0-99.0); RDW COEFFICIENT OF VARIATION 13.7 % (11.6-14.8); RED BLOOD COUNT 3.52 10^6/ul (4.20-5.40); WHITE BLOOD COUNT 9.79 K/ul (4.6-10.2)
[2021-12-06 06:27] LABS: ALANINE AMINOTRANSFERASE 38.9 U/L (0-35); ALBUMIN 3.34 g/dL (3.5-5.0); ALKALINE PHOSPHATASE 79.3 U/L (53-141); ASPARTATE AMINO TRANSFERASE 29.6 U/L (14-36); BILIRUBIN,TOTAL 0.58 mg/dL (0.2-1.3); BLOOD UREA NITROGEN 23.6 mg/dL (7-17); CALCIUM 8.46 mg/dL (8.4-10.2); CARBON DIOXIDE 29.9 mmol/L (22-30.0); CHLORIDE 99.3 mmol/L (98-107); CREATININE 0.91 mg/dL (0.60-1.30); GLUCOSE 251.8 mg/dL (74-106); POTASSIUM 3.78 mmol/L (3.5-5.1); SODIUM 135.4 mmol/L (134.5-145); TOTAL PROTEIN 5.96 g/dL (6.3-8.2)
--- NOTE | 2021-12-06 08:00 | HP ---
DATE OF SERVICE: 12/04/21 REASON FOR HOSPITALIZATION/HISTORY OF PRESENT ILLNESS: Blood pressure still elevated- restarted Minoxidil. Legs swollen. Feeling short of breath. Weight increase 2 pounds. PAST MEDICAL HISTORY: Hypertension Osteoarthritis Diabetes Mellitus type II Hypertension Hypothyroidism History of PVC Glaucoma PAST SURGICAL HISTORY: Left knee flushed cyst Right shoulder Hysterectomy Bilateral carpal tunnel Right breast nodule REVIEW OF SYSTEMS: CONSTITUTIONAL: No fever, Fatigue. HEENT: No sinus drainage, no sore throat. RESPIRATORY: No cough, no congestion. CARDIOVASCULAR: No atypical chest pain for coronary artery disease. No angina, CHF symptoms. Palpitations and shortness of breath. GASTROINTESTINAL: No melena or abdominal pain. No GERD. GENITOURINARY: No hematuria, no prostatism, no polyuria. COMMUNITY MENTAL HEALTH SOCIAL WORKER: No blackout, no dizziness, no headache, no double vision. MUSCULOSKELETAL: No osteoarthritis pain, no joint swelling. ENDOCRINE: No weight loss, Weight gain, 2 pounds. SKIN: Not dry, no rash. PSYCHIATRIC: Anxious, no depression, no suicidal thoughts, no homicidal thoughts. SOCIAL HISTORY: Marital Status: Single. Alcohol Usage: No. Tobacco Usage: No. FAMILY HISTORY: Father Mother Brother 4 MEDICATIONS: Lasix 40mg PO PRN Synthroid 125mcg Clonidine 0.1mg BID Mag Oxide 400mg PO daily Aspirin 81mg PO daily Losartan 50mg PO daily Xanax 1mg PO PRN Vimpat 100mg PO BID Minoxidil 2.5mg PO BID [place] 10-325mg PO PRN Norvasc 5mg AM Humulin 70-30 40 units BID Eye drops Excedrin PRN Bio Freeze gel Hydralazine 25mg TID ALLERGIES: Metformin Coreg Codeine Lisinopril [place] Cymbalta Actos IVP Dye Shellfish PHYSICAL EXAMINATION: V/S: Pulse 149, blood pressure 166/60, temperature 98.2, oxygen saturation 98%, BMI 34.4, height 5'4, weight 200.8. GENERAL APPEARANCE: Oriented times three. HEENT:Sweaty. NECK: No JVP, no bruits. RESPIRATORY: Decreased breath sounds. CARDIOVASCULAR: S1, S2, no S3, no murmur. Tachy. No cyanosis, clubbing. No ascites. GI/ABDOMEN: No tenderness. Bowel sounds are active. EXTREMITIES: +2 bilateral lower extremity edema, pulses +1, equal. COMMUNITY MENTAL HEALTH SOCIAL WORKER: Deep tendon reflexes, sensory, motor and gait all normal. RECTAL: Years ago Dr. Farerll./ PELVIC: Partial hysterectomy. ASSESSMENT: 1. Sinus tachycardia 2. Hypertensive emergency 3. Leg edema 4. Recent acute renal failure with severe hyperkalemia with bradycardia- temporary pacemaker and Dialysis x 48 hours 5. Diabetic neuropathy 6. Dependent edema 7. Hypertension 8. Hypothyroidism 9. Viral encephalitis 10. Seizure disorder- Dr. Potter 11. PAD, Dr. Rodriguez 12. Obesity 13. Met syndrome 14. Diabetes Mellitus type II A1c 10.2 07/10 15. PVC 16. Noncompliant of diet, medications and lifestyle 17. Bilateral CTS surgery 18. Bilateral cataracts 19. Right renal cyst- Caden 20. Glaucoma. 21. Dyslipidemia 22. MET syndrome 23. Benign right breast cyst-Dylon. PLAN: 1. Tested in drive through 2. Routine telemetry orders. 3. Start Metoprolol 12.5mg BID start one now and then tonight 4. T4 TSH 5. Elevate legs 6. Hold PO Lasix 7. Start Lasix 40mg IV daily 8. Humulin 70/30 units daily 9. Continue other home medications 10.Chest x-ray 11. U/A 12. Regular diet 13. CBC and CMP now and daily TIME SPENT: More than 70 minutes. MTDD
[2021-12-06] MEDS ORDERED: HYZAAR 50-12.5 MG TAB PO SCH (09:00)
[2021-12-06] MEDS: MAG-OX PO SCH (09:13)
[2021-12-06] MEDS: K-DUR PO SCH (09:13)
[2021-12-06] MEDS: LOPRESSOR PO SCH ×2 (09:14→20:22)
[2021-12-06] MEDS: COZAAR PO SCH ×2 (09:14→20:22)
[2021-12-06] MEDS: BRIMONIDINE TARTRATE 0.2% OPTH SOL EACHEYE SCH ×2 (09:14→20:23)
[2021-12-06] MEDS: MINOXIDIL PO SCH ×2 (09:14→20:22)
[2021-12-06] MEDS: ASPIRIN CHEWABLE PO SCH (09:14)
[2021-12-06] MEDS: CATAPRES PO SCH ×2 (09:14→20:22)
[2021-12-06] MEDS: TIMOPTIC 0.5% OPTH EACHEYE SCH ×2 (09:14→20:23)
[2021-12-06] MEDS: LACOSAMIDE 100 MG PO SCH ×2 (09:15→20:23)
[2021-12-06] MEDS: HUMULIN 70-30 SUBCUT SCH ×3 (09:16→20:22)
--- NOTE | 2021-12-06 09:18 | PCM.PROG ---
Attending Provider: ATTENDING PROVIDER: Dr. SWAPNA SUAZO This patient is seen with Isabel Cortés, Nurse Practitioner. DATE OF SERVICE: 12/06/21 SUBJECTIVE: This 76 year old AA/BLACK F was hospitalized 12/04/21. Heart rate and blood pressure have improved. Still leg edema despite having leg elevated. Sugars are improved. REVIEW OF SYSTEMS: CONSTITUTIONAL: No night sweats. No fatigue, malaise, lethargy. No fever or chills. Weakness. HEENT: Eyes: No visual changes. No eye pain. No eye discharge. ENT: No runny nose. No epistaxis. No sinus pain. No odynophagia. No congestion. RESPIRATORY: No cough, no congestion. No hemoptysis. No shortness of breath. CARDIOVASCULAR: No angina symptoms. No CHF symptoms. No atypical chest pain for CAD. No palpitations. No orthopnea.. GASTROINTESTINAL: No abdominal pain. No nausea or vomiting. No diarrhea or constipation. No hematemesis. No hematochezia. GENITOURINARY: No urgency. No frequency. No dysuria. No hematuria. No obstructive symptoms. No discharge. No pain. No significant abnormal bleeding. MUSCULOSKELETAL: No musculoskeletal pain; no joint swelling. Leg edema. NEUROLOGICAL: Awake, alert, oriented to time, place and person. No headache. No neck pain. No syncope. No seizures. No dizziness. PSYCHIATRIC: Not anxious. No depression. No suicidal thoughts. No homicidal thoughts. SKIN: No rash. No lesions. No wounds. ENDOCRINE: No unexplained weight loss. No weight gain. HEMATOLOGIC/LYMPHATIC: No anemia. No purpura. No petechiae. No prolonged or excessive bleeding. No palpable lymph nodes. PHYSICAL EXAMINATION: GENERAL: The patient is awake, alert and oriented, lying in bed in no distress. VITAL SIGNS: Temperature 98.0 F, Pulse 85, Respiratory Rate 18, BP 131/72, Pulse Ox 100% HEENT: Head normocephalic, atraumatic. Eyes: Extraocular muscles are intact. Pupils are equal, round and reactive to light and accommodation. Ears: No lesions. Nose appeared normal. Throat: No exudate or erythema. NECK: Supple. No JVD, no carotid bruit. No lymphadenopathy or thyromegaly. LUNGS: Diminished breath sounds. Clear to auscultation. Percussion note normal. Chest symmetrical. HEART: S1, S2, no S3. No murmurs. No cyanosis or clubbing. No ascites. Pulses: Dorsalis pedis and posterior tibial pulses +1 to +2 both sides. ABDOMEN: Soft. Non-tender. Bowel sounds active. No CVA tenderness. No mass felt. EXTREMITIES: 1+ bilateral leg edema. Full range of motion of all extremities, equal. NEUROLOGIC: No focal deficit. Cranial nerves II through XII are grossly intact. No headache. No double vision. SKIN: Not dry. Intact. Turgor-normal. LYMPHATIC: No palpable lymph nodes/no lymphedema. MUSCULOSKELETAL: Normal joints with no swelling. Muscle tone is normal. LAB REVIEW: 12/06/21 05:30 12/06/21 06:00 12/06/21 06:00: Sodium 135.4, Potassium 3.78, Chloride 99.3, Carbon Dioxide 29.9, Anion Gap 9.98, BUN 23.6 H, Creatinine 0.91, Estimated GFR (MDRD) 73.00, BUN/Creatinine Ratio 25.93, Glucose 251.8 H, Calcium 8.46, Total Bilirubin 0.58, AST 29.6, ALT 38.9 H, Alkaline Phosphatase 79.3, Total Protein 5.96 L, Albumin 3.34 L, Globulin 2.62, Albumin/Globulin Ratio 1.27 12/06/21 05:30: WBC 9.79, RBC 3.52 L, Hgb 9.8 L, Hct 30.7 L, MCV 87.2, MCH 27.8, MCHC 31.9, RDW Coeff of Keyla 13.7, Plt Count 207 ASSESSMENT: Please see below. 1. Sinus tachycardia, resolved 2. Hypertension, improved 3. Diabetes Mellitus type II 5. Leg edema PLAN: 1. Discontinue Norvasc 2. Losartan BID 3. 40mg Lasix IV on Friday and then start 40mg PO on Friday 4. Potassium 20meq PO daily 5. Insulin 30mg units twice a day 6. Accu-checks TID 7. Keep legs elevated Plan and coordination of the patient's care discussed in the presence of Pail Tester and nurse. SCRIBED BY: MARIAELENA ROSS Detail Manager scribed while in presence of service performed by Dr. Suazo/Isabel Cortés APRN on 12/06/21 ([id number])
[2021-12-07] MEDS: SYNTHROID PO SCH ×2 (05:38)
[2021-12-07 05:51] LABS: BASOPHILS # (AUTO) 0.1 K/uL (0-0.2); BASOPHILS % (AUTO) 0.6 % (0.0-3.0); EOSINOPHILS # (AUTO) 0.3 K/ul (0.0-0.7); EOSINOPHILS % (AUTO) 2.8 % (0.0-7.0); HEMATOCRIT 33.3 % (37.0-47.0); HEMOGLOBIN 10.7 g/dl (12.0-16.0); IMMATURE GRANULOCYTE % (AUTO) 0.3 % (0.0-5.0); LYMPHOCYTES # (AUTO) 2.6 K/uL (0.60-3.4); LYMPHOCYTES % (AUTO) 23.9 (10.0-50.0); MEAN CORPUSCULAR HEMOGLOBIN 27.6 pg (27.0-31.0); MEAN CORPUSCULAR HGB CONC 32.1 (31.8-35.4); MEAN CORPUSCULAR VOLUME 85.8 fl (81.0-99.0); MONOCYTES # (AUTO) 1.1 K/uL (0.4-2.0); MONOCYTES % (AUTO) 9.7 (0-10); NEUTROPHILS # (AUTO) 6.8 K/ul (2.0-6.9); NEUTROPHILS % (AUTO) 62.7 % (42.2-75.2); PLATELET COUNT 268 10^3/uL (140-440); RDW COEFFICIENT OF VARIATION 13.5 % (11.6-14.8); RED BLOOD COUNT 3.88 10^6/ul (4.20-5.40); WHITE BLOOD COUNT 10.83 K/ul (4.6-10.2)
[2021-12-07 06:08] LABS: ALANINE AMINOTRANSFERASE 41.7 U/L (0-35); ALBUMIN 3.83 g/dL (3.5-5.0); ALKALINE PHOSPHATASE 84.7 U/L (53-141); ASPARTATE AMINO TRANSFERASE 31.3 U/L (14-36); BILIRUBIN,TOTAL 0.61 mg/dL (0.2-1.3); BLOOD UREA NITROGEN 25.6 mg/dL (7-17); CALCIUM 8.85 mg/dL (8.4-10.2); CARBON DIOXIDE 29.7 mmol/L (22-30.0); CHLORIDE 100.1 mmol/L (98-107); CREATININE 0.91 mg/dL (0.60-1.30); GLUCOSE 130.3 mg/dL (74-106); POTASSIUM 3.61 mmol/L (3.5-5.1); SODIUM 137.1 mmol/L (134.5-145); TOTAL PROTEIN 6.73 g/dL (6.3-8.2)
[2021-12-07] MEDS ORDERED: LASIX IVP SCH (06:30)
[2021-12-07] MEDS: ASPIRIN CHEWABLE PO SCH (09:25)
[2021-12-07] MEDS: MAG-OX PO SCH (09:26)
[2021-12-07] MEDS: LOPRESSOR PO SCH ×2 (09:26→20:43)
[2021-12-07] MEDS: MINOXIDIL PO SCH ×2 (09:26→20:44)
[2021-12-07] MEDS: CATAPRES PO SCH ×2 (09:26→20:43)
[2021-12-07] MEDS: K-DUR PO SCH (09:26)
[2021-12-07] MEDS: COZAAR PO SCH ×2 (09:26→20:44)
[2021-12-07] MEDS: HUMULIN 70-30 SUBCUT SCH ×2 (09:27→20:42)
[2021-12-07] MEDS: LACOSAMIDE 100 MG PO SCH ×2 (09:27→20:47)
[2021-12-07] MEDS: BRIMONIDINE TARTRATE 0.2% OPTH SOL EACHEYE SCH ×2 (09:27→20:45)
[2021-12-07] MEDS: TIMOPTIC 0.5% OPTH EACHEYE SCH ×2 (09:27→20:45)
--- NOTE | 2021-12-07 09:45 | PCM.PROG ---
Attending Provider: ATTENDING PROVIDER: Dr. SWAPNA SUAZO DATE OF SERVICE: 12/07/21 SUBJECTIVE: This 76 year old AA/BLACK F was hospitalized 12/04/21 with palpitation and shortness of breath and hypertensive urgency. The patient's condition has improved and feeling better. No palpitations. No chest pain. No PND. No orthopnea. REVIEW OF SYSTEMS: CONSTITUTIONAL: No night sweats. No fatigue, malaise, lethargy. No fever or chills. HEENT: Eyes: No visual changes. No eye pain. No eye discharge. ENT: No runny nose. No epistaxis. No sinus pain. No odynophagia. No congestion. RESPIRATORY: No cough, no congestion. No hemoptysis. No shortness of breath. CARDIOVASCULAR: No angina symptoms. No CHF symptoms. No atypical chest pain for CAD. No palpitations. No orthopnea.. GASTROINTESTINAL: No abdominal pain. No nausea or vomiting. No diarrhea or constipation. No hematemesis. No hematochezia. GENITOURINARY: No urgency. No frequency. No dysuria. No hematuria. No obstructive symptoms. No discharge. No pain. No significant abnormal bleeding. MUSCULOSKELETAL: No musculoskeletal pain; no joint swelling. NEUROLOGICAL: Awake, alert, oriented to time, place and person. No headache. No neck pain. No syncope. No seizures. No dizziness. PSYCHIATRIC: Not anxious. No depression. No suicidal thoughts. No homicidal thoughts. SKIN: No rash. No lesions. No wounds. ENDOCRINE: No unexplained weight loss. No weight gain. HEMATOLOGIC/LYMPHATIC: No anemia. No purpura. No petechiae. No prolonged or excessive bleeding. No palpable lymph nodes. PHYSICAL EXAMINATION: GENERAL: The patient is awake, alert and oriented, sitting in bed in no distress. VITAL SIGNS: Temperature 97.2 F, Pulse 73, Respiratory Rate 20, BP 127/64, Pulse Ox 99% HEENT: Head normocephalic, atraumatic. Eyes: Extraocular muscles are intact. Pupils are equal, round and reactive to light and accommodation. Ears: No lesions. Nose appeared normal. Throat: No exudate or erythema. NECK: Supple. No JVD, no carotid bruit. No lymphadenopathy or thyromegaly. LUNGS: Clear to auscultation. Percussion note normal. Chest symmetrical. HEART: S1, S2, no S3. No murmurs. No cyanosis or clubbing. No ascites. Pulses: Dorsalis pedis and posterior tibial pulses +1 to +2 both sides. ABDOMEN: Soft. Non-tender. Bowel sounds active. No CVA tenderness. No mass felt. EXTREMITIES: No edema. Full range of motion of all extremities, equal. NEUROLOGIC: No focal deficit. Cranial nerves II through XII are grossly intact. No headache, no double vision or headache. SKIN: Warm and dry. Intact. Turgor-normal. LYMPHATIC: No palpable lymph nodes/no lymphedema. MUSCULOSKELETAL: Normal joints with no swelling. Muscle tone is normal. LAB REVIEW: 12/07/21 04:28 12/07/21 04:28 12/07/21 04:28: Sodium 137.1, Potassium 3.61, Chloride 100.1, Carbon Dioxide 29.7, Anion Gap 10.91, BUN 25.6 H, Creatinine 0.91, Estimated GFR (MDRD) 73.00, BUN/Creatinine Ratio 28.13, Glucose 130.3 H D, Calcium 8.85, Total Bilirubin 0.61, AST 31.3, ALT 41.7 H, Alkaline Phosphatase 84.7, Total Protein 6.73, Albumin 3.83, Globulin 2.90, Albumin/Globulin Ratio 1.32 12/07/21 04:28: WBC 10.83 H, RBC 3.88 L, Hgb 10.7 L, Hct 33.3 L, MCV 85.8, MCH 27.6, MCHC 32.1, RDW Coeff of Keyla 13.5, Plt Count 268, Immature Gran % (Auto) 0 .3, Neut % (Auto) 62.7, Lymph % (Auto) 23.9, Martin % (Auto) 9.7, Eos % (Auto) 2.8, Baso % (Auto) 0.6, Neut # (Auto) 6.8, Lymph # (Auto) 2.6, Martin # (Auto) 1.1, Eos # (Auto) 0.3, Baso # (Auto) 0.1, Immature Gran # (Auto) 0.0 ASSESSMENT: Please see below. 1. Palpitations resolved, patient is doing well On Metoprolol 25mg BID 2. Hyperglycemia with diabetes mellitus under control with splitting doses of insulin 3. Hypertension, controlled 4. Education about medications carried out. PLAN: 1. The patient is going to be on PO Lasix from tomorrow, there is no leg edema. Plan and coordination of the patient's care discussed in the presence of Color Print Inspector and nurse. SCRIBED BY: Josh CHARLTON scribed while in presence of service performed by Dr. SWAPNA SUAZO on 12/07/21 ([id number])
[2021-12-07 21:43] VITALS: TEMP 98
[2021-12-08 05:03] VITALS: BP 116/62
[2021-12-08] MEDS: SYNTHROID PO SCH ×2 (05:56)
[2021-12-08 06:11] LABS: BASOPHILS # (AUTO) 0.1 K/uL (0-0.2); BASOPHILS % (AUTO) 0.7 % (0.0-3.0); EOSINOPHILS # (AUTO) 0.2 K/ul (0.0-0.7); EOSINOPHILS % (AUTO) 2.2 % (0.0-7.0); HEMATOCRIT 29.2 % (37.0-47.0); HEMOGLOBIN 9.3 g/dl (12.0-16.0); IMMATURE GRANULOCYTE % (AUTO) 0.2 % (0.0-5.0); LYMPHOCYTES # (AUTO) 2.1 K/uL (0.60-3.4); LYMPHOCYTES % (AUTO) 24.8 (10.0-50.0); MEAN CORPUSCULAR HEMOGLOBIN 27.6 pg (27.0-31.0); MEAN CORPUSCULAR HGB CONC 31.8 (31.8-35.4); MEAN CORPUSCULAR VOLUME 86.6 fl (81.0-99.0); MONOCYTES % (AUTO) 11.4 (0-10); NEUTROPHILS # (AUTO) 5.2 K/ul (2.0-6.9); NEUTROPHILS % (AUTO) 60.7 % (42.2-75.2); PLATELET COUNT 239 10^3/uL (140-440); RDW COEFFICIENT OF VARIATION 13.4 % (11.6-14.8); RED BLOOD COUNT 3.37 10^6/ul (4.20-5.40); WHITE BLOOD COUNT 8.51 K/ul (4.6-10.2)
[2021-12-08 06:24] LABS: ALANINE AMINOTRANSFERASE 33.2 U/L (0-35); ALBUMIN 3.22 g/dL (3.5-5.0); ASPARTATE AMINO TRANSFERASE 22.9 U/L (14-36); BILIRUBIN,TOTAL 0.5 mg/dL (0.2-1.3); BLOOD UREA NITROGEN 25.2 mg/dL (7-17); CALCIUM 8.55 mg/dL (8.4-10.2); CARBON DIOXIDE 31.1 mmol/L (22-30.0); CHLORIDE 101.6 mmol/L (98-107); CREATININE 0.9 mg/dL (0.60-1.30); GLUCOSE 77.2 mg/dL (74-106); POTASSIUM 3.49 mmol/L (3.5-5.1); SODIUM 137.7 mmol/L (134.5-145); TOTAL PROTEIN 6.01 g/dL (6.3-8.2)
[2021-12-08] MEDS ORDERED: LASIX TAB PO SCH (06:30)
[2021-12-08] MEDS: MINOXIDIL PO SCH (08:49)
[2021-12-08] MEDS: K-DUR PO SCH (08:49)
[2021-12-08] MEDS: ASPIRIN CHEWABLE PO SCH (08:49)
[2021-12-08] MEDS: LOPRESSOR PO SCH (08:49)
[2021-12-08] MEDS: LACOSAMIDE 100 MG PO SCH (08:49)
[2021-12-08] MEDS: COZAAR PO SCH (08:49)
[2021-12-08] MEDS: MAG-OX PO SCH (08:50)
[2021-12-08] MEDS: CATAPRES PO SCH (08:50)
[2021-12-08] MEDS: BRIMONIDINE TARTRATE 0.2% OPTH SOL EACHEYE SCH (08:54)
[2021-12-08] MEDS: TIMOPTIC 0.5% OPTH EACHEYE SCH (08:54)
[2021-12-08] MEDS: HUMULIN 70-30 SUBCUT SCH (12:05)
--- NOTE | 2021-12-13 11:48 | PN ---
DATE OF SERVICE: 12/05/21 SUBJECTIVE: 76 year old black female hospitalized with palpitation and weakness and hypertensive emergency. The patient was hospitalized recently nearly a week ago to the hospital and Acebutolol was discontinued and Hydralazine was added. The patient ever since then has been feeling like having palpitation and shortness of breath on exertion. The patient in the office has pulse of 120 per minute. She is feeling a lot better. REVIEW OF SYSTEMS: CONSTITUTIONAL: No night sweats. No fatigue, malaise, lethargy. No fever or chills. HEENT: Eyes: No visual changes. No eye pain. No eye discharge. ENT: No runny nose. No epistaxis. No sinus pain. No sore throat. No odynophagia. No congestion. RESPIRATORY: No cough, no congestion. No hemoptysis. No shortness of breath. CARDIOVASCULAR: No angina symptoms. No CHF symptoms. No atypical chest pain for CAD. No palpitations. No PND. No orthopnea. GASTROINTESTINAL: No abdominal pain. No nausea or vomiting. No diarrhea or constipation. No hematemesis. No hematochezia. GENITOURINARY: No urgency. No frequency. No dysuria. No hematuria. No obstructive symptoms. No discharge. No pain. No significant abnormal bleeding. MUSCULOSKELETAL: No musculoskeletal pain; no joint swelling. NEUROLOGICAL: No headache. No neck pain. No syncope. No seizures. No dizziness. PSYCHIATRIC: Not anxious. No depression. No suicidal thoughts. No homicidal thoughts. SKIN: No rash. No lesions. No wounds. ENDOCRINE: No unexplained weight loss. No weight gain. HEMATOLOGIC/LYMPHATIC: No anemia. No purpura. No petechiae. No prolonged or excessive bleeding. No palpable lymph nodes. PHYSICAL EXAMINATION: VITAL SIGNS: Temperature 99.1, pulse 97, respiratory rate 18, blood pressure 133/66 and pulse ox 97%. HEENT: Head normocephalic, atraumatic. Eyes: Extraocular muscles are intact. Pupils are equal, round and reactive to light and accommodation. Ears: No lesions. Nose appeared normal. Throat: No exudate or erythema. NECK: Supple. No JVD, no carotid bruit. No lymphadenopathy or thyromegaly. LUNGS: Decreased breath sounds but clear to auscultation. Percussion note normal. Chest symmetrical. HEART: S1, S2, no S3. No murmurs. No cyanosis or clubbing. No ascites. Pulses: Dorsalis pedis and posterior tibial pulses +1 to +2 bilaterally. ABDOMEN: Soft. Nontender. Bowel sounds active. No CVA tenderness. No mass felt. EXTREMITIES: No edema. Full range of motion of all extremities, equal. NEUROLOGIC: No focal deficit. Cranial nerves II through XII are grossly intact. No headache. No double vision. SKIN: Not dry. Intact. Turgor - normal. LYMPHATIC: No palpable lymph nodes/no lymphedema. MUSCULOSKELETAL: Normal joints with no swelling. Muscle tone is normal. LABS: Hgb 9.7, hct 30, WBC 9,800 normal differential, creatinine 0.9, BUN 17, potassium 3.6 ASSESSMENT: 1. Sinus tachycardia has resolved 2. Anxious feeling seems to have resolved 3. Hypokalemia seems to ahve resolved PLAN: 1. Increase the Metoprolol to 25mg twice a day 2. Potassium supplement 3. Monitor the blood sugar with sliding scale 4. The patient wants Humulin 70-30 just once a day instead of twice a day that was given at other hospital in [place]. The patient expressed the opinion that the other hospital had no clue about what medications she has been on for all these years. She has been on Acebutolol for past 25-30 years. The other change was to discontinue Hydralazine. CONDITION: Stable TIME SPENT: More than 30 minutes. Plan and coordination of the patient's care discussed in the presence of nurse. MARCO ANTONIO
--- NOTE | 2021-12-13 13:18 | PN ---
DATE OF SERVICE: 12/08/21 SUBJECTIVE: 76 year old black female hospitalized with sinus tachycardia, palpitation, hypertensive urgency. The patient has been feeling really poorly every since she was discharged from [facility]. The patient taken off acebutolol put her on Hydralazine and several other medications that she thought was making her feel bad. In any case the patient's pulse rate was 110-130 per minute. There was no symptoms of CHF or coronary insufficiency. The patient's medications were changed as Cozaar was increased to twice a day and Norvasc was taken off because of leg swelling and required an increase in insulin for the time being. She was put on Metoprolol 12.5mg later on increased to 25mg. The patient's condition has improved. She is feeling better and wants to go home. REVIEW OF SYSTEMS: CONSTITUTIONAL: No night sweats. No fatigue, malaise, lethargy. No fever or chills. HEENT: Eyes: No visual changes. No eye pain. No eye discharge. ENT: No runny nose. No epistaxis. No sinus pain. No sore throat. No odynophagia. No congestion. RESPIRATORY: No cough, no congestion. No hemoptysis. No shortness of breath. CARDIOVASCULAR: No angina symptoms. No CHF symptoms. No atypical chest pain for CAD. No palpitations. No PND. No orthopnea. GASTROINTESTINAL: No abdominal pain. No nausea or vomiting. No diarrhea or constipation. No hematemesis. No hematochezia. GENITOURINARY: No urgency. No frequency. No dysuria. No hematuria. No obstructive symptoms. No discharge. No pain. No significant abnormal bleeding. MUSCULOSKELETAL: No musculoskeletal pain; no joint swelling. NEUROLOGICAL: No headache. No neck pain. No syncope. No seizures. No dizziness. PSYCHIATRIC: Not anxious. No depression. No suicidal thoughts. No homicidal thoughts. SKIN: No rash. No lesions. No wounds. ENDOCRINE: No unexplained weight loss. No weight gain. HEMATOLOGIC/LYMPHATIC: No anemia. No purpura. No petechiae. No prolonged or excessive bleeding. No palpable lymph nodes. PHYSICAL EXAMINATION: VITAL SIGNS: Temperature 98, pulse 79, respiratory rate 18, blood pressure 116/62 and pulse ox 97% HEENT: Head normocephalic, atraumatic. Eyes: Extraocular muscles are intact. Pupils are equal, round and reactive to light and accommodation. Ears: No lesions. Nose appeared normal. Throat: No exudate or erythema. NECK: Supple. No JVD, no carotid bruit. No lymphadenopathy or thyromegaly. LUNGS: Decreased breath sounds but clear to auscultation. Percussion note normal. Chest symmetrical. HEART: S1, S2, no S3. No murmurs. No cyanosis or clubbing. No ascites. Pulses: Dorsalis pedis and posterior tibial pulses +1 to +2 bilaterally. ABDOMEN: Soft. Nontender. Bowel sounds active. No CVA tenderness. No mass felt. EXTREMITIES: No edema. Full range of motion of all extremities, equal. NEUROLOGIC: No focal deficit. Cranial nerves II through XII are grossly intact. No headache. No double vision. SKIN: Not dry. Intact. Turgor - normal. LYMPHATIC: No palpable lymph nodes/no lymphedema. MUSCULOSKELETAL: Normal joints with no swelling. Muscle tone is normal. LABS: hgb 9.3, hct 29, WBC 8,500 normal differential, creatinine 0.9, BUN 25, potassium 3.5. ASSESSMENT: 1. Palpitation seems to be under control. The patient is on Beta alla 2. Hypertensive crisis resolved with change in the medications 3. Hypokalemia, borderline PLAN: 1. Start the Potassium supplements. 20meq daily. She is advised to half a tablet PO daily 2. The patient is going to be discharged home. 3. Advised to take K-Chlor 20meq half tablet daily 4. Discontinue Hyzaar 5. Increase Losartan to 50mg twice a day 6. Humulin 70-30 to be taken like she taking before 7. Continue Norvasc 8. New Medication Metoprolol 25mg twice a day 9. Don't take Acebutolol 10.Followup on Friday12/19/21 at 10:30am. TIME SPENT: More than 30 minutes. Plan and coordination of the patient's care discussed in the presence of nurse. MARCO ANTONIO
--- NOTE | 2021-12-13 13:19 | PN ---
ADMISSION DAY: LEVEL 5 REST OF THEM: INTERMEDIATE FINAL DAY: D IN DISCHARGE MTDD
--- NOTE | 2021-12-13 13:25 | PN ---
DATE OF SERVICE: 12/06/21 SUBJECTIVE: The patient was seen and examined with the Nurse Practitioner. The patient's doesn't have any palpitation anymore. Cardiovascular status is stable. Blood pressure is under control. TIME SPENT: More than 30 minutes. Plan and coordination of the patient's care discussed in the presence of nurse. MARCO ANTONIO
--- NOTE | 2021-12-13 13:58 | DS ---
DATE OF SERVICE: 12/08/21 FINAL DIAGNOSIS: 1. Palpitations, sinus tachycardia likely withdraw from Acebutolol 2. History of hyperkalemia with electrolyte imbalance, Hyperglycemia at [facility] in [place] 3. Chronic anemia 4. Diabetes Mellitus 5. Hypothyroidism 6. Hypertension 7. Dyslipidemia DISCHARGE INSTRUCTIONS: Discharge home. Continue the rest of the medication the same as before. Looks like Statin was omitted from this list, I will check on it on patient's return on followup visit on December 19. The patient is to continue Insulin as before once a day in the morning. MEDICATIONS AT DISCHARGE: Lasix 40mg PO daily Aspirin 81mg PO daily Magnesium oxide 400mg PO daily Vimpat 100mg PO BID Brimonidine one drop both eyes BID Synthroid 125mcg PO daily Timolol maleate two drop each eye BID Clonidine 0.1mg PO BID Humulin 70/30 40 units SUBCUT [place] 10-325mg PO daily PRN Inqvjld-Poawynkjsljxm-eipoqyox 1 tablet PO daily PRN Xanax 1mg PO bedtime PRN Biofreeze 1 application Topical daily PRN Minoxidil 5mg PO BID NEW PRESCRIPTIONS: K-Chlor 20meq half a tablet PO daily Increase Losartan to 50mg twice a day Metoprolol 25mg BID DISCONTINUED MEDICATIONS: Hydralazine Norvasc Acebutolol DIET INSTRUCTIONS: Discussed with the patient. LABS: Hgb 9.3, hct 29, WBC 8,500 normal differential, creatinine 0.9, BUN 25, potassium 3.49, glucose 77 on the day of discharge. HOSPITAL COURSE: 76 year old black female was seen in the office and was palpitations and shortness of breath with dizziness, her pulse was 110 and systolic blood pressure was more than 170. The patient had been to one of the [facility] and Acebutolol was discontinued and several medication changes were made. According to the patient was hospitalized with high potassium and several other things with high blood sugar. In any case the patient was started on Beta Som Metoprolol increased to 25mg twice a day. Acebutolol was discontinued as done in one of the [facility]. During the stay in the hospital the patient Norvasc was discontinued as the patient had leg edema, Cozaar was increased to 50mg twice a day along with continuation of Hydralazine that was started in one of the [facility]. Her insulin was started at the same dose she was on at home prior to both hospitalizations. The patient is to follow strict diet. Advised to cut down on Potassium containing products like prune juice, bananas, fruits and nuts, etc. The patient's electrolyte will be followed as an outpatient. The patient is going to monitor the blood sugar. The patient declined any further workup. She had complete cardiac workup nearly a year ago which was negative for ischemia. In any case the patient on second day felt a lot better. She was up and about, she had no palpitation. Her telemetry showed heart rate of 70-[address]-T wave changes noted on her EKGs. She felt a lot better with the changes in the medications. Condition at the time of discharge is stable. The patient was explained about diabetes mellitus and it's complications and need for her to follow the diet which she hasn't been for a number of years. BMI is 34. Weight loss diet discussed. Advised to increase the activity as she has sedentary lifestyle. The patient is to be seen on December 19 at 10am on Friday. TIME SPENT: More than 60 minutes. MARCO ANTONIO
== END 2021-12-08 13:58 | disposition home or self-care (01) | DRG 305 ==
LOC: LAB 11:23 → MEDSURG A 12:54
PROVIDERS: ADMIT Internal Medicine; ATTEND Internal Medicine
DX: E78.5 Hyperlipidemia, unspecified; I16.0 Hypertensive urgency; E87.5 Hyperkalemia; G40.909 Epilepsy, unspecified, not intractable, without status epilepticus; I10 Essential (primary) hypertension; Z79.899 Other long term (current) drug therapy; R00.2 Palpitations; R00.0 Tachycardia, unspecified; E11.65 Type 2 diabetes mellitus with hyperglycemia; R05.9 Cough, unspecified; E88.81 Metabolic syndrome and other insulin resistance; M19.90 Unspecified osteoarthritis, unspecified site; I73.9 Peripheral vascular disease, unspecified; R60.0 Localized edema; Z91.11 Patient's noncompliance with dietary regimen; E66.9 Obesity, unspecified; Z87.448 Personal history of other diseases of urinary system; Z91.19 Patient's noncompliance with other medical treatment and regimen; E03.9 Hypothyroidism, unspecified; Z51.81 Encounter for therapeutic drug level monitoring; D63.8 Anemia in other chronic diseases classified elsewhere; Z20.822 Contact with and (suspected) exposure to COVID-19; H40.9 Unspecified glaucoma; E08.40 Diabetes mellitus due to underlying condition with diabetic neuropathy, unspecified